=== PATIENT | female | born 1960 | race Hispanic/Latino ===

== ENCOUNTER 2018-01-19 14:27 | Emergency (ER) | payer SELFPAY ==
[2018-01-19 15:55] LABS: Absolute Monocytes 0.5 K/uL (0.1-1.3); Absolute Neutrophil 5.8 K/uL (1.8-8.0); Basophils % 0.2 % (0-1.3); Eosinophils % 2.2 % (0-4.4); Hematocrit 43.3 % (36.0-45.0); Lymphocytes % 31.4 % (15.3-44.8); MCH 29.6 pg (27.0-35.0); MCV 86.3 fL (80-100); MPV 9.8 fL (7.6-11.3); Monocytes % 5.2 % (3.3-12.3); Protime INR 1.04; RBC Red Blood Cell Count 5.02 M/uL (3.86-4.86)
--- NOTE | 2018-01-19 15:59 | RAD REPORT ---
EXAM DESCRIPTION: RAD - Chest Single View - 01/19/2018 3:44 pm CLINICAL HISTORY: Chest pain COMPARISON: October 2016 TECHNIQUE: AP portable chest image was obtained 1537 hours . FINDINGS: Lungs are clear. Heart and vasculature are normal. No measurable pleural effusion and no p neumothorax. No gross bony abnormality seen. No acute aortic findings suspected. IMPRESSION: No acute cardiopulmonary process. No significant change from comparison.
[2018-01-19 16:06] LABS: Bicarbonate 29 mEq/L (21-31); Glucose Level 108 mg/dL (65-120); Potassium 3.7 mEq/L (3.6-5.0); Sodium Level 138 mEq/L (135-145)
[2018-01-19 16:12] LABS: ALT/SGPT 13 IU/L (10-60); AST/SGOT 16 IU/L (10-42); Albumin 3.7 g/dL (3.2-5.5); Alkaline Phosphatase 61 IU/L (42-121); BUN Blood Urea Nitrogen 12 mg/dL (6-20); Bilirubin Direct 0.1 mg/dL (0-0.2); Bilirubin Total 0.4 mg/dL (0.3-1.2); Magnesium 1.5 mg/dL (1.8-2.5); Protein, Total 7.5 g/dL (6.0-8.3)
[2018-01-19 16:39] LABS: Urine Blood NEGATIVE (NEG); Urine Glucose NEGATIVE (NEG); Urine Protein NEGATIVE (NEG); Urine Specific Gravity <1.005 (1.005-1.030); Urine pH 5.5 (5.0-7.0)
[2018-01-19] MEDS ORDERED: MAGNESIUM SULFATE 1 gm IVPB 1 GM/100 ML BAG IV ONE (16:42)
--- NOTE | 2018-01-19 18:36 | ER ---
Nurse's Notes [facility] Name: Milana Gibson Age: 57 yrs Sex: Female : 1960 Arrival Date: 01/19/2018 Time: 14:30 Bed 30 Private MD: Diagnosis: Acute upper respiratory infection, unspecified;Viral illness Presentation: 01/19 14:41 Presenting complaint: Patient states: armando been having chest pain for 6 weeks but today hj the pain is worse and its a weird feeling that pain moves to the back and to my L arm; denies SOB;. Transition of care: patient was not received from another setting of care. Onset of symptoms was January 19, 2018. Care prior to arrival: None. 14:41 Method Of Arrival: Ambulatory 14:41 Acuity: LORNA 3 hj Triage Assessment: 14:43 General: Appears in no apparent distress. uncomfortable, Behavior is calm, cooperative, hj appropriate for age. Pain: Complains of pain in chest Pain radiates to back and left arm. Cardiovascular: Capillary refill < 3 seconds Patient's skin is warm and dry. 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 - Social history:: Smoking status: Patient/guardian denies using tobacco, never smoked. Screenin:06 Abuse screen: Denies threats or abuse. Nutritional screening: No deficits noted. rk2 Tuberculosis screening: No symptoms or risk factors identified. Fall Risk None identified. Assessment: 14:45 Pain: Pain began gradually. hj 15:09 General: Appears in no apparent distress. well groomed, well developed, well nourished, rk2 Behavior is calm, cooperative. Pain: Pain began Off and on over the past several weeks. Pain: Complains of pain in left arm and back and chest. Pain: Pain radiates to left arm and back. Neuro: Level of Consciousness is alert, obeys commands, Oriented to person, place, time, situation. Cardiovascular: Rhythm is sinus rhythm. Respiratory: Airway is patent Respiratory effort is even, unlabored, Respiratory pattern is regular, symmetrical. Derm: Skin is pink, warm \T\ dry. 16:15 Reassessment: Pt. resting in room \T\ this time... appears to be in no obvious distress. rk2 Nobody \T\ bedside. Pt. voiced no needs \T\ this time. 17:30 Reassessment: Pt. resting in room, in no obvious distress... pt. is pain free. No needs rk2 voiced \T\ this time. Vital Signs: 14:43 BP 132 / 90; Pulse 79; Resp 18; Temp 98.1(TE); Pulse Ox 99% on R/A; Weight 73.03 kg; hj Height 5 ft. 0 in. (152.40 cm); Pain 7/10; 15:30 BP 133 / 77; Pulse 77; Resp 17; Pulse Ox 99% on R/A; rk2 16:30 BP 135 / 67; Pulse 68; Resp 17; rk2 17:30 BP 124 / 65; Pulse 71; Resp 16; Pulse Ox 100% on R/A; rk2 18:30 BP 123 / 77; Pulse 66; Resp 17; Pulse Ox 99% on R/A; rk2 14:43 Body Mass Index 31.44 (73.03 kg, 152.40 cm) ED Course: 14:30 Patient arrived in ED. rg4 14:38 Loki Roberson MD is Attending Physician. kdr 14:42 Triage completed. hj 14:43 Arm band placed on left wrist. hj 14:45 Patient maintains SpO2 saturation greater than 95% on room air. hj 14:52 Neva Cooley, JASWINDER is Primary Nurse. rk2 15:06 Patient has correct armband on for positive identification. Placed in gown. Bed in low rk2 position. Call light in reach. tar roofer on. Pulse ox on. 15:41 XRAY Chest (1 view) In Process Unspecified. EDMS 15:41 XRAY Chest (1 view) Sent. rk2 16:03 X-ray completed. Portable x-ray completed in exam room. Patient tolerated procedure ap2 well. 18:47 No provider procedures requiring assistance completed. rk2 18:47 IV discontinued. rk2 Administered Medications: 16:46 Drug: Magnesium Sulfate 1 grams Route: IVPB; Infused Over: 1 hrs; Site: right rk antecubital; 17:46 Follow up: Response: No adverse reaction; IV Status: Completed infusion rk2 Outcome: 18:35 Discharge ordered by . kdr 19:08 Discharged to home ambulatory. rk2 19:08 Condition: good 19:08 Discharge instructions given to patient, Prescriptions given X 4. 19:09 Patient left the ED. rk2 Signatures: Dispatcher [employer] EDMS Loki Roberson MD MD kdr Joaquin, Henry, RN RN hj Garcia, Rubi rg4 Neva Cooley RN RN rk2 Sarita Martins ap2
--- NOTE | 2018-01-19 18:36 | EDPHYS ---
Physician Documentation [facility] Name: Milana Gibson Age: 57 yrs Sex: Female : 1960 Arrival Date: 01/19/2018 Time: 14:30 Bed 30 Private MD: ED Physician Loki Roberson HPI: 01/19 23:19 This 57 yrs old Female presents to ER via Ambulatory with complaints of Chest kdr Pain, Back Pain. 23:19 The patient or guardian reports cough, that is intermittent, described as moderate, kdr difficulty breathing, hoarse voice. Onset: The symptoms/episode began/occurred gradually, There patient has had upper respiratory s/s for a few week but today after spiritism, she became acutely worse with chest pressure and apparent laryngitis with coarse cough. Severity of symptoms: At their worst the symptoms were mild, moderate, in the emergency department the symptoms are unchanged. Modifying factors: The symptoms are alleviated by nothing, the symptoms are aggravated by exertion, talking. Associated signs and symptoms: Pertinent positives: chest pain, with cough, with movement, with breathing, sore throat. The patient has not experienced similar symptoms in the past. The patient has not recently seen a physician. 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 - Social history:: Smoking status: Patient/guardian denies using tobacco, never smoked. ROS: 23:19 Constitutional: Negative for fever, chills, and weight loss, Eyes: Negative for injury, kdr pain, redness, and discharge, Neck: Negative for injury, pain, and swelling, Abdomen/GI: Negative for abdominal pain, nausea, vomiting, diarrhea, and constipation, Back: Negative for injury and pain, : Negative for injury, bleeding, discharge, and swelling, MS/Extremity: Negative for injury and deformity, Skin: Negative for injury, rash, and discoloration, Neuro: Negative for headache, weakness, numbness, tingling, and seizure activity. Psych: Negative for depression, anxiety, suicide ideation, homicidal ideation, and hallucinations, Allergy/Immunology: Negative for hives, rash, and allergies, Endocrine: Negative for neck swelling, polydipsia, polyuria, polyphagia, and marked weight changes, Hematologic/Lymphatic: Negative for swollen nodes, abnormal bleeding, and unusual bruising. 23:19 ENT: Positive for hoarseness, sore throat. 23:19 Cardiovascular: Positive for chest pain, Negative for edema, orthopnea, palpitations, paroxysmal nocturnal dyspnea, acute changes. 23:19 Respiratory: Positive for cough, with no reported sputum, dyspnea on exertion, shortness of breath, on exertion. Exam: 23:19 Constitutional: This is a well developed, well nourished patient who is awake, alert, kdr and in no acute distress. Head/Face: Normocephalic, atraumatic. Eyes: Pupils equal round and reactive to light, extra-ocular motions intact. Lids and lashes normal. Conjunctiva and sclera are non-icteric and not injected. Cornea within normal limits. Periorbital areas with no swelling, redness, or edema. ENT: Nares patent. No nasal discharge, no septal abnormalities noted. Tympanic membranes are normal and external auditory canals are clear. Oropharynx with no redness, swelling, or masses, exudates, or evidence of obstruction, uvula midline. Mucous membranes moist. The patinet's voice is coars and raspy Neck: Trachea midline, no thyromegaly or masses palpated, and no cervical lymphadenopathy. Supple, full range of motion without nuchal rigidity, or vertebral point tenderness. No Meningismus. Chest/axilla: Normal chest wall appearance and motion. Nontender with no deformity. No lesions are appreciated. Cardiovascular: Regular rate and rhythm with a normal S1 and S2. No gallops, murmurs, or rubs. Normal PMI, no JVD. No pulse deficits. Respiratory: Lungs have equal breath sounds bilaterally, clear to auscultation and percussion. No rales, rhonchi or wheezes noted. No increased work of breathing, no retractions or nasal flaring. Abdomen/GI: Soft, non-tender, with normal bowel sounds. No distension or tympany. No guarding or rebound. No evidence of tenderness throughout. Back: No spinal tenderness. No costovertebral tenderness. Full range of motion. Skin: Warm, dry with normal turgor. Normal color with no rashes, no lesions, and no evidence of cellulitis. MS/ Extremity: Pulses equal, no cyanosis. Neurovascular intact. Full, normal range of motion. Neuro: Awake and alert, GCS 15, oriented to person, place, time, and situation. Cranial nerves II-XII grossly intact. Motor strength 5/5 in all extremities. Sensory grossly intact. Cerebellar exam normal. Normal gait. Psych: Awake, alert, with orientation to person, place and time. Behavior, mood, and affect are within normal limits. Vital Signs: 14:43 BP 132 / 90; Pulse 79; Resp 18; Temp 98.1(TE); Pulse Ox 99% on R/A; Weight 73.03 kg; hj Height 5 ft. 0 in. (152.40 cm); Pain 7/10; 15:30 BP 133 / 77; Pulse 77; Resp 17; Pulse Ox 99% on R/A; rk2 16:30 BP 135 / 67; Pulse 68; Resp 17; rk2 17:30 BP 124 / 65; Pulse 71; Resp 16; Pulse Ox 100% on R/A; rk2 18:30 BP 123 / 77; Pulse 66; Resp 17; Pulse Ox 99% on R/A; rk2 14:43 Body Mass Index 31.44 (73.03 kg, 152.40 cm) hj MDM: 18:35 Patient medically screened. kdr 23:19 Data reviewed: vital signs, nurses notes, lab test result(s), EKG, radiologic studies. kdr Counseling: I had a detailed discussion with the patient and/or guardian regarding: the historical points, exam findings, and any diagnostic results supporting the discharge/admit diagnosis, lab results, radiology results, the need for outpatient follow up. 01/19 15:19 Order name: Basic Metabolic Panel; Complete Time: 16:40 kdr 01/19 15:19 Order name: CBC with Diff; Complete Time: 16:11 kdr 01/19 15:19 Order name: LFT's; Complete Time: 16:40 kdr 01/19 15:19 Order name: Magnesium; Complete Time: 16:40 kdr 01/19 15:19 Order name: PT-INR; Complete Time: 16:11 kdr 01/19 15:19 Order name: Ptt, Activated; Complete Time: 16:11 kdr 01/19 15:19 Order name: Troponin (emerg Dept Use Only); Complete Time: 16:40 kdr 01/19 15:19 Order name: XRAY Chest (1 view); Complete Time: 16:11 kdr 01/19 15:19 Order name: EKG; Complete Time: 15:19 kdr 01/19 15:19 Order name: Cardiac monitoring; Complete Time: 15:22 kdr 01/19 15:19 Order name: EKG - Nurse/Tech; Complete Time: 15:22 kdr 01/19 15:19 Order name: IV Saline Lock; Complete Time: 15:22 kdr 01/19 16:20 Order name: Urine Dipstick--Ancillary (enter results); Complete Time: 16:40 ag 01/19 15:19 Order name: Labs collected and sent; Complete Time: 15:22 kdr 01/19 15:19 Order name: O2 Per Protocol; Complete Time: 15:23 kdr 01/19 15:19 Order name: O2 Sat Monitoring; Complete Time: 15:23 kdr 01/19 15:19 Order name: Urine Dipstick-Ancillary (obtain specimen); Complete Time: 16:15 kdr Administered Medications: 16:46 Drug: Magnesium Sulfate 1 grams Route: IVPB; Infused Over: 1 hrs; Site: right rk2 antecubital; 17:46 Follow up: Response: No adverse reaction; IV Status: Completed infusion rk2 Disposition: 01/19/18 18:35 Discharged to Home. Impression: Acute upper respiratory infection, unspecified, Viral illness. - Condition is Stable. - Discharge Instructions: Upper Respiratory Infection, Adult, Viral Infections, [id number]. - Prescriptions for Prednisone 20 mg Oral Tablet - take 1 tablet by ORAL route once daily for 5 days; 5 tablet. Tessalon Perles 100 mg Oral Capsule - take 1 capsule by ORAL route every 8 hours As needed; 15 capsule. Zithromax Z- Bello 250 mg Oral Tablet - take 1 tablet by ORAL route as directed for 5 days Day 1 - take two (2) tablets one time. Day 2, 3, 4 , 5 take one (1) tablet once daily.; 6 tablet. Albuterol Sulfate 90 mcg/actuation - inhale 1-2 puff by INHALATION route every 4-6 hours; 1 Inhaler. - Medication Reconciliation Form, Thank You Letter, Antibiotic Education, Prescription Opioid Use form. - Follow up: Private Physician; When: 2 - 3 days; Reason: If symptoms return, Further diagnostic work-up, Recheck today's complaints, Continuance of care, Re-evaluation by your physician. - Problem is new. - Symptoms have improved. Signatures: Dispatcher [employer] Loki Melendez MD MD [facility] Ozzie Monroy RN RN hj Neva Cooley RN RN rk2
--- NOTE | 2018-01-20 07:38 | EKG ---
Test Date: 2018-01-19 Test Time: 14:49:05 [employer]: ADWOA MEASUREMENT RESULTS: Intervals: Rate: 77 MS: 148 QRSD: 72 QT: 380 QTc: 430 Chauvin: P: 24 MS: 148 QRS: -12 T: 17 INTERPRETIVE STATEMENTS: Normal sinus rhythm Cannot rule out Anterior infarct, age undetermined Abnormal ECG Electronically Signed On 01-20-18 07:37:25 CDT by Greg Rodriguez
== END 2018-01-19 19:09 | disposition home or self-care (01) ==
LOC: ER 14:27
DX: J06.9 Acute upper respiratory infection, unspecified (principal); E11.9 Type 2 diabetes mellitus without complications; Z79.82 Long term (current) use of aspirin; Z88.0 Allergy status to penicillin
CPT/HCPCS: 36415; 71045; 80048; 80076; 81003; 83735; 84484; 85025; 85610; 85730; 93005; 96365; 99285; J3475

== ENCOUNTER 2019-01-27 18:03 | Emergency (ER) | payer SELFPAY ==
--- NOTE | 2019-01-27 18:46 | ER ---
Nurse's Notes [facility] Name: Milana Gibson Age: 58 yrs Sex: Female : 1960 Arrival Date: 01/27/2019 Time: 18:04 Bed 19 Private MD: Diagnosis: Tran's palsy Presentation: 01/27 18:06 Presenting complaint: Patient states: "I noticed I had left sided facial droop on sv Saturday and I went to see my doctor today and he told me to come to the ER." Denies slurred speech, weakness, balance issues. Reports recent hyperglycemia issues and Tran's palsy. Pt unable to close her left eye. Transition of care: patient was not received from another setting of care. No acute neurological deficit is noted. Pre-hospital glucose is not applicable to this patient. Onset of symptoms was January 25, 2019. Care prior to arrival: None. 18:06 Method Of Arrival: Ambulatory sv 18:06 Acuity: LORNA 3 sv 19:07 Risk Assessment: Do you want to hurt yourself or someone else? Patient reports no bp desire to harm self or others. Initial Sepsis Screen: Does the patient meet any 2 criteria? No. Patient's initial sepsis screen is negative. Does the patient have a suspected source of infection? No. Patient's initial sepsis screen is negative. Triage Assessment: 18:09 The onset of the patients symptoms was January 25, 2019 at 08:00. General: Appears in no bp apparent distress. comfortable, obese, Behavior is calm, cooperative, appropriate for age. Pain: Denies pain. EENT: No deficits noted. Neuro: Reports paresthesias in LEFT FACE. Cardiovascular: No deficits noted. Respiratory: Airway is patent Respiratory effort is even, unlabored, Respiratory pattern is regular, symmetrical. GI: No signs and/or symptoms were reported involving the gastrointestinal system. : No signs and/or symptoms were reported regarding the genitourinary system. Derm: No deficits noted. Musculoskeletal: Circulation, motion, and sensation intact. Range of motion: intact in all extremities. Stroke Activation: Symptom onset > 6 hours Physician: Stroke Attending; Name: ; Notified At: ; Arrived At: Physician: Chief Stroke Resident; Name: ; Notified At: ; Arrived At: Physician: Stroke Resident; Name: ; Notified At: ; Arrived At: Physician: ED Attending; Name: ; Notified At: ; Arrived At: Physician: ED Resident; Name: ; Notified At: ; Arrived At: Historical: - Allergies: 18:07 PENICILLINS; sv 18:07 tramadol; sv - Home Meds: 19:08 aspirin 81 mg Oral TbEC 1 tab once daily [Active]; lisinopril Oral [Active]; metformin bp 1,000 mg Oral tab 1 tab 2 times per day [Active]; - PMHx: 18:07 Diabetes - IDDM; sv - PSHx: 18:07 Cholecystectomy; ; Tubal ligation; Tonsillectomy; sv - Immunization history:: Adult Immunizations up to date. - Social history:: Smoking status: unknown. - Family history:: not pertinent. - Ebola Screening: : Patient negative for fever greater than or equal to 101.5 degrees Fahrenheit, and additional compatible Ebola Virus Disease symptoms Patient denies exposure to infectious person Patient denies travel to an Ebola-affected area in the 21 days before illness onset No symptoms or risks identified at this time. - Hospitalizations: : No recent hospitalization is reported. Screenin:11 Abuse screen: Denies threats or abuse. Denies injuries from another. Nutritional bp screening: No deficits noted. Tuberculosis screening: No symptoms or risk factors identified. Fall Risk None identified. Assessment: 18:11 VAN Scoring: Arm Drift: Patients demonstrates NO arm weakness. Patient is VAN Negative. bp The patient has not been NPO before screening. The patient is alert, and able to follow commands. The patient does not exhibit slurred or garbled speech. The patient is not exhibiting difficulty speaking. The patient does not exhibit difficulty understanding words. The patient is able to swallow own secretions with no drooling or need for suction. Patient tolerated one teaspoon of water. No drooling, immediate coughing, gurgling, or clearing of the throat was noted. The patient tolerated 90mL of water. No drooling, immediate coughing, gurgling, or clearing of the throat was noted. The patient passed the bedside swallow screening. Oral medications may be given as ordered. Contact Physician for further diet orders. Provider notified of bedside swallow screening results: Juan Diego Mcdaniels MD. T-PA (Activase) Screening: Contraindications: Patient reports onset of signs and symptoms of stroke greater than 6 hours ago: Yes. General: SEE TRIAGE NOTE. 19:06 Reassessment: PT D/C HOME AMBULATORY, DX WITH TRAN'S PALSY. bp Vital Signs: 18:08 BP 129 / 85; Pulse 79; Resp 18; Temp 98.1; Pulse Ox 100% ; Weight 86.18 kg; Height 5 sv ft. 0 in. (152.40 cm); Pain 0/10; 18:08 Body Mass Index 37.11 (86.18 kg, 152.40 cm) sv NIH Stroke Scale Scores: 18:11 NIHSS Score: 3 bp ED Course: 18:04 Patient arrived in ED. as 18:07 Triage completed. sv 18:08 Arm band placed on. sv 18:09 Aldo Fried, JASWINDER is Primary Nurse. bp 18:10 Juan Diego Mcdaniels MD is Attending Physician. wa 18:11 Patient has correct armband on for positive identification. Bed in low position. Call bp light in reach. Side rails up X2. 18:45 Daniel Arnold MD is Referral Physician. wa 19:06 No provider procedures requiring assistance completed. Patient did not have IV access bp during this emergency room visit. Administered Medications: No medications were administered Outcome: 18:45 Discharge ordered by . wa 19:06 Discharged to home ambulatory. bp 19:06 Condition: stable 19:06 Discharge instructions given to patient, Instructed on discharge instructions, follow up and referral plans. medication usage, Demonstrated understanding of instructions, follow-up care, medications, Prescriptions given X 2. 19:08 Patient left the ED. bp NIH Stroke Scale - NIH Stroke Score Date: 01/27/2019 Time: 18:11 Total Score = 3 1a. Level of Consciousness (LOC) - 0(Alert) 1b. Level of Consciousness (LOC) (Year \\T\\ Age) - 0(Both) 1c. LOC Commands (Open \\T\\ Closes Eyes/Paradi Tender) - 0(Both) 2. Best Gaze (Lateral Gaze Paresis) - 0(Normal) 3. Visual Field Loss - 0(No visual loss) 4. Facial Palsy - 2(Partial paralysis) 5a. Left Arm: Motor (10-second hold) - 0(No drift) 5b. Right Arm: Motor (10-second hold) - 0(No drift) 6a. Left Leg: Motor (5-second hold - always test supine) - 0(No drift) 6b. Right Leg: Motor (5-second hold - always test supine) - 0(No drift) 7. Limb Ataxia (finger/nose \\T\\ heel/grady - test with eyes open) - 0(Absent) 8. Sensory Loss (pinprick arms/legs/face) - 1(Mild to moderate loss) 9. Best Language: Aphasia (description/naming/reading) - 0(No aphasia) 10. Dysarthria (speech clarity - read or repeat words) - 0(Normal) 11. Extinction and Inattention (visual/tactile/auditory/spatial/personal) - 0(No abnormality) Initials: bp Signatures: Shabnam Vasquez RN RN Alycia Krishnamurthy William, MD MD pa Aldo Fried RN RN bp Corrections: (The following items were deleted from the chart) 18:08 18:06 Presenting complaint: Patient states: "I noticed I had facial droop on Saturday and I went to see my doctor today and he told me to come to the ER." Denies slurred speech, weakness, balance issues. 18:11 18:06 Presenting complaint: Patient states: "I noticed I had facial droop on Saturday and I went to see my doctor today and he told me to come to the ER." Denies slurred speech, weakness, balance issues. Reports recent hyperglycemia issues and Tran's palsy
--- NOTE | 2019-01-27 18:46 | EDPHYS ---
Physician Documentation [facility] Name: Milana Gibson Age: 58 yrs Sex: Female : 1960 Arrival Date: 01/27/2019 Time: 18:04 Bed 19 Private MD: ED Physician Juan Diego Mcdaniels HPI: 01/27 18:39 This 58 yrs old Female presents to ER via Ambulatory with complaints of Facial wa Droop. 18:39 The patient presents to the emergency department with weakness of the left side of the wa face, that is moderate. Onset: The symptoms/episode began/occurred 3 day(s) ago. Context: occurred at home, occurred while the patient was at rest. Associated signs and symptoms: Pertinent negatives: altered mental status, dizziness, headache, neck stiffness, paresthesias, seizure, blurred vision, double vision, visual field changes, loss of vision. Severity of symptoms: At their worst the symptoms were moderate in the emergency department the symptoms are unchanged. Patient's baseline: Neuro: alert and fully oriented, Motor: no deficits, Ambulation: walks without assistance, Speech: normal, The patient has a previous history of Tran's palsy. Current symptoms: paralysis or paresis, that is moderate. The patient has not experienced similar symptoms in the past. The patient has not recently seen a physician. denies dizziness, GEE, difficulty with speech or ambulation. Historical: - Allergies: 18:07 PENICILLINS; sv 18:07 tramadol; sv - Home Meds: 19:08 aspirin 81 mg Oral TbEC 1 tab once daily [Active]; lisinopril Oral [Active]; metformin bp 1,000 mg Oral tab 1 tab 2 times per day [Active]; - PMHx: 18:07 Diabetes - IDDM; sv - PSHx: 18:07 Cholecystectomy; ; Tubal ligation; Tonsillectomy; sv - Immunization history:: Adult Immunizations up to date. - Social history:: Smoking status: unknown. - Family history:: not pertinent. - Ebola Screening: : Patient negative for fever greater than or equal to 101.5 degrees Fahrenheit, and additional compatible Ebola Virus Disease symptoms Patient denies exposure to infectious person Patient denies travel to an Ebola-affected area in the 21 days before illness onset No symptoms or risks identified at this time. - Hospitalizations: : No recent hospitalization is reported. ROS: 18:42 Constitutional: Negative for fever, chills, and weight loss, Eyes: Negative for injury, wa pain, redness, and discharge, ENT: Negative for injury, pain, and discharge, Neck: Negative for injury, pain, and swelling, Cardiovascular: Negative for chest pain, palpitations, and edema, Respiratory: Negative for shortness of breath, cough, wheezing, and pleuritic chest pain, Abdomen/GI: Negative for abdominal pain, nausea, vomiting, diarrhea, and constipation, Back: Negative for injury and pain, : Negative for injury, bleeding, discharge, and swelling, MS/Extremity: Negative for injury and deformity, Skin: Negative for injury, rash, and discoloration, Psych: Negative for depression, anxiety, suicide ideation, homicidal ideation, and hallucinations. 18:42 Neuro: Positive for weakness, of the left face. 18:42 All other systems are negative. Exam: 18:42 Constitutional: This is a well developed, well nourished patient who is awake, alert, wa and in no acute distress. Head/Face: Normocephalic, atraumatic. Eyes: Pupils equal round and reactive to light, extra-ocular motions intact. Lids and lashes normal. Conjunctiva and sclera are non-icteric and not injected. Cornea within normal limits. Periorbital areas with no swelling, redness, or edema. ENT: Nares patent. No nasal discharge, no septal abnormalities noted. Tympanic membranes are normal and external auditory canals are clear. Oropharynx with no redness, swelling, or masses, exudates, or evidence of obstruction, uvula midline. Mucous membranes moist. Neck: Trachea midline, no thyromegaly or masses palpated, and no cervical lymphadenopathy. Supple, full range of motion without nuchal rigidity, or vertebral point tenderness. No Meningismus. Chest/axilla: Normal chest wall appearance and motion. Nontender with no deformity. No lesions are appreciated. Cardiovascular: Regular rate and rhythm with a normal S1 and S2. No gallops, murmurs, or rubs. Normal PMI, no JVD. No pulse deficits. Respiratory: Lungs have equal breath sounds bilaterally, clear to auscultation and percussion. No rales, rhonchi or wheezes noted. No increased work of breathing, no retractions or nasal flaring. Abdomen/GI: Soft, non-tender, with normal bowel sounds. No distension or tympany. No guarding or rebound. No evidence of tenderness throughout. Back: No spinal tenderness. No costovertebral tenderness. Full range of motion. Skin: Warm, dry with normal turgor. Normal color with no rashes, no lesions, and no evidence of cellulitis. MS/ Extremity: Pulses equal, no cyanosis. Neurovascular intact. Full, normal range of motion. Psych: Awake, alert, with orientation to person, place and time. Behavior, mood, and affect are within normal limits. 18:42 Neuro: Orientation: is normal, Mentation: is normal, Cranial nerves: grossly normal, Cerebellar function: is grossly normal, Motor: L facial paralysis noted. involves forehead musculature as well, Sensation: is normal. Vital Signs: 18:08 BP 129 / 85; Pulse 79; Resp 18; Temp 98.1; Pulse Ox 100% ; Weight 86.18 kg; Height 5 sv ft. 0 in. (152.40 cm); Pain 0/10; 18:08 Body Mass Index 37.11 (86.18 kg, 152.40 cm) sv NIH Stroke Scale Scores: 18:11 NIHSS Score: 3 bp MDM: 18:10 Patient medically screened. 18:44 Data reviewed: vital signs, nurses notes. 18:44 ED course: symptoms consistent with Tran's palsy. meds. close f/u. advised artificial wa tears. Administered Medications: No medications were administered Disposition: 01/27/19 18:45 Discharged to Home. Impression: Tran's palsy. - Condition is Stable. - Discharge Instructions: Tran Palsy, Adult. - Prescriptions for Prednisone 20 mg Oral Tablet - take 2 tablet by ORAL route once daily for 5 days; 10 tablet. Acyclovir 800 mg Oral Tablet - take 1 tablet by ORAL route 5 times per day for 10 days; 50 tablet. - Medication Reconciliation Form, Thank You Letter, Antibiotic Education, Prescription Opioid Use form. - Follow up: Daniel Arnold MD; When: 2 - 3 days; Reason: Recheck today's complaints. - Problem is new. - Symptoms are unchanged. - Notes: make sure you check your blood sugar and stay on our insulin as prednisone could cause blood glucose to go high. buy artificial tears for your left eye to prevent drying and dessication. you may take the L eye shut with bandaid at night to prevent dryness NIH Stroke Scale - NIH Stroke Score Date: 01/27/2019 Time: 18:11 Total Score = 3 1a. Level of Consciousness (LOC) - 0(Alert) 1b. Level of Consciousness (LOC) (Year \T\ Age) - 0(Both) 1c. LOC Commands (Open \T\ Closes Eyes/Technology Assistant) - 0(Both) 2. Best Gaze (Lateral Gaze Paresis) - 0(Normal) 3. Visual Field Loss - 0(No visual loss) 4. Facial Palsy - 2(Partial paralysis) 5a. Left Arm: Motor (10-second hold) - 0(No drift) 5b. Right Arm: Motor (10-second hold) - 0(No drift) 6a. Left Leg: Motor (5-second hold - always test supine) - 0(No drift) 6b. Right Leg: Motor (5-second hold - always test supine) - 0(No drift) 7. Limb Ataxia (finger/nose \T\ heel/grady - test with eyes open) - 0(Absent) 8. Sensory Loss (pinprick arms/legs/face) - 1(Mild to moderate loss) 9. Best Language: Aphasia (description/naming/reading) - 0(No aphasia) 10. Dysarthria (speech clarity - read or repeat words) - 0(Normal) 11. Extinction and Inattention (visual/tactile/auditory/spatial/personal) - 0(No abnormality) Initials: bp Signatures: Shabnam Vasquez RN RN sv Appiah, William, MD MD wa Peltier, Brian, RN RN bp Corrections: (The following items were deleted from the chart) 19:08 18:45 01/27/2019 18:45 Discharged to Home. Impression: Tran's palsy. Condition bp is Stable. Forms are Medication Reconciliation Form, Thank You Letter, Antibiotic Education, Prescription Opioid Use. Follow up: Daniel Arnold; When: 2 - 3 days; Reason: Recheck today's complaints. Problem is new. Symptoms are unchanged. librado
== END 2019-01-27 19:08 | disposition home or self-care (01) ==
LOC: ER 18:03
DX: G51.0 Bell's palsy (principal); E11.9 Type 2 diabetes mellitus without complications; Z79.82 Long term (current) use of aspirin; Z79.4 Long term (current) use of insulin; Z88.5 Allergy status to narcotic agent; Z88.0 Allergy status to penicillin
CPT/HCPCS: 99282

== ENCOUNTER 2020-11-05 22:23 | Inpatient (IN) | payer BC, SELFPAY ==
--- NOTE | 2020-11-06 02:57 | ER ---
Nurse's Notes [facility] Name: Milana Gibson Age: 60 yrs Sex: Female : 1960 Arrival Date: 11/05/2020 Time: 22:23 Bed 6 Private MD: Diagnosis: Chest pain, unspecified;Type 2 diabetes mellitus;Hypomagnesemia Presentation: 11/05 23:11 Chief complaint: Patient states: Chest pain that began at 2200 tonight before going to lp1 bed; reports feeling tightness in chest radiating to left arm and jaw;. Ebola Screen: No symptoms or risks identified at this time. Risk Assessment: Do you want to hurt yourself or someone else? Patient reports no desire to harm self or others. Onset of symptoms was November 05, 2020 at 22:00. 23:11 Method Of Arrival: Ambulatory lp1 23:11 Acuity: LORNA 3 lp1 23:15 Coronavirus screen: Client denies travel out of the [place] in the last 14 days. At this lp1 time, the client does not indicate any symptoms associated with coronavirus-19. Initial Sepsis Screen: Does the patient meet any 2 criteria? No. Patient's initial sepsis screen is negative. Does the patient have a suspected source of infection? No. Patient's initial sepsis screen is negative. Triage Assessment: 23:22 General: Appears in no apparent distress. Behavior is appropriate for age. Pain: lp1 Complains of pain in chest Pain radiates to left arm. Cardiovascular: Patient's skin is warm and dry. Respiratory: Respiratory effort is even, unlabored. Derm: Skin is pink, warm \T\ dry. Historical: - Allergies: 23:15 PENICILLINS; lp1 23:15 tramadol; lp1 23:15 Clindamycin; lp1 - Home Meds: 23:15 aspirin 81 mg Oral TbEC 1 tab once daily [Active]; metformin 1,000 mg Oral tab 1 tab 2 lp1 times per day [Active]; paroxetine HCl 10 mg oral tab 1 tab once daily [Active]; fluconazole 200 mg Oral tab 1 tab once daily [Active]; - PMHx: 23:15 Diabetes - IDDM; Depression; Diabetes - NIDDM; lp1 - PSHx: 23:15 Tonsillectomy; Cholecystectomy; ; Tubal ligation; lp1 - Immunization history:: Adult Immunizations up to date. - Social history:: Smoking status: Patient denies any tobacco usage or history of. - Family history:: not pertinent. Screenin/31 03:00 Abuse screen: Denies threats or abuse. Nutritional screening: No deficits noted. ll2 Tuberculosis screening: No symptoms or risk factors identified. Fall Risk None identified. Assessment: 03:00 General: Appears in no apparent distress. Behavior is calm, cooperative, appropriate ll2 for age. Pain: Complains of pain in left arm and chest Pain began gradually. Neuro: Level of Consciousness is awake, alert, obeys commands, Oriented to person, place, time, situation. Cardiovascular: Patient's skin is warm and dry. Respiratory: Airway is patent Respiratory effort is even, unlabored. GI: No signs and/or symptoms were reported involving the gastrointestinal system. : No signs and/or symptoms were reported regarding the genitourinary system. EENT: No signs and/or symptoms were reported regarding the EENT system. Derm: Skin is pink, warm \T\ dry. 04:00 Reassessment: Patient and/or family updated on plan of care and expected duration. Pain ll2 level reassessed. Patient is alert, oriented x 3, equal unlabored respirations, skin warm/dry/pink. 05:00 Reassessment: Patient and/or family updated on plan of care and expected duration. Pain ll2 level reassessed. Patient is alert, oriented x 3, equal unlabored respirations, skin warm/dry/pink. Pain: Denies pain. Vital Signs: 11/05 23:15 BP 146 / 82; Pulse 82; Resp 18; Temp 97.9(O); Pulse Ox 99% on R/A; Weight 78.93 kg (R); lp1 Height 5 ft. 0 in. (152.40 cm); Pain 7/10; 11/06 02:11 BP 126 / 76; Pulse 72; Resp 16; Pulse Ox 98% on R/A; ll2 03:15 BP 130 / 75; Pulse 75; Resp 20; Pulse Ox 97% on R/A; ll2 04:15 BP 120 / 55; Pulse 72; Resp 18; Pulse Ox 97% on R/A; ll2 05:15 BP 110 / 60; Pulse 62; Resp 16; Pulse Ox 96% on R/A; ll2 06:16 BP 128 / 68; Pulse 67; Resp 18; Pulse Ox 98% on R/A; ll2 11/05 23:15 Body Mass Index 33.98 (78.93 kg, 152.40 cm) lp1 ED Course: 11/05 22:23 Patient arrived in ED. cl3 23:12 Triage completed. lp1 23:13 Arm band placed on right wrist. lp1 23:22 EKG done, by ED staff, reviewed by Иван Jacobs MD. lp1 23:23 Patient maintains SpO2 saturation greater than 95% on room air. lp1 11/06 01:21 Chest Single View XRAY In Process Unspecified. EDMS 01:59 Иван Jacobs MD is Attending Physician. you 02:50 Joann Schofield, JASWINDER is Primary Nurse. ll2 02:53 Derek Benites MD is Hospitalizing Provider. you 03:00 Patient has correct armband on for positive identification. Placed in gown. Bed in low ll2 position. Call light in reach. Side rails up X 1. teacher of the visually impaired on. Pulse ox on. NIBP on. 03:00 Inserted saline lock: 20 gauge in left wrist, using aseptic technique. Blood collected. oe 04:50 No provider procedures requiring assistance completed. ll2 04:55 Patient admitted, IV remains in place. ll2 07:20 Primary Nurse role handed off by Joann Schofield, JASWINDER sv 07:20 Shabnam Vasquez, JASWINDER is Primary Nurse. sv Administered Medications: 03:29 Drug: Lovenox 1 mg/kg Route: Sub-Q; Site: abdomen; ll2 04:30 Follow up: Response: No adverse reaction ll2 03:29 Drug: Lopressor 25 mg Route: PO; ll2 04:30 Follow up: Response: No adverse reaction ll2 03:30 Drug: NS 0.9% 1000 ml Route: IV; Rate: 125 ml/hr; Site: left forearm; ll2 03:31 Drug: Aspirin 162 mg Route: PO; ll2 04:30 Follow up: Response: No adverse reaction ll2 05:30 Drug: Magnesium Sulfate 1 grams Route: IVPB; Infused Over: 1 hrs; Site: right forearm; ll2 Outcome: 02:56 Decision to Hospitalize by Provider. you 04:50 Condition: stable ll2 04:50 Instructed on the need for admit. 09:27 Admitted to Tele accompanied by tech, via stretcher, room 216, with chart, Report hb called to Paula SAN 09:55 Patient left the ED. hb Signatures: Dispatcher [employer] Shabnam Joseph, RN RN Иван Shah MD MD cha Pena, Laura, RN RN lp1 Wendi Anderson RN RN Chao Guillaume Charde cl3 Joann Schofield RN RN ll2
--- NOTE | 2020-11-06 02:57 | EDPHYS ---
Physician Documentation [facility] Name: Milana Gibson Age: 60 yrs Sex: Female : 1960 Arrival Date: 11/05/2020 Time: 22:23 Bed 6 Private MD: ED Physician Иван Jacobs HPI: 11/06 02:48 This 60 yrs old Female presents to ER via Ambulatory with complaints of Chest you Pain. 02:48 The patient or guardian reports chest pain that is located primarily in the substernal you area, anterior chest wall, left. Onset: last night. The pain radiates to the left arm, Associated signs and symptoms: The patient has no apparent associated signs or symptoms. The chest pain is described as a pressure. Duration: The patient or guardian reports multiple episodes, with no pattern. Severity of pain: At its worst the pain was moderate in the emergency department the pain has resolved. The patient has not experienced similar symptoms in the past. Historical: - Allergies: 11/05 23:15 PENICILLINS; lp1 23:15 tramadol; lp1 23:15 Clindamycin; lp1 - Home Meds: 23:15 aspirin 81 mg Oral TbEC 1 tab once daily [Active]; metformin 1,000 mg Oral tab 1 tab 2 lp1 times per day [Active]; paroxetine HCl 10 mg oral tab 1 tab once daily [Active]; fluconazole 200 mg Oral tab 1 tab once daily [Active]; - PMHx: 23:15 Diabetes - IDDM; Depression; Diabetes - NIDDM; lp1 - PSHx: 23:15 Tonsillectomy; Cholecystectomy; ; Tubal ligation; lp1 - Immunization history:: Adult Immunizations up to date. - Social history:: Smoking status: Patient denies any tobacco usage or history of. - Family history:: not pertinent. ROS: 11/06 02:48 Constitutional: Negative for fever, chills, and weight loss, Eyes: Negative for injury, you pain, redness, and discharge, ENT: Negative for injury, pain, and discharge, Neck: Negative for injury, pain, and swelling, Respiratory: Negative for shortness of breath, cough, wheezing, and pleuritic chest pain, Abdomen/GI: Negative for abdominal pain, nausea, vomiting, diarrhea, and constipation, Back: Negative for injury and pain, : Negative for injury, bleeding, discharge, and swelling, MS/Extremity: Negative for injury and deformity, Skin: Negative for injury, rash, and discoloration, Neuro: Negative for headache, weakness, numbness, tingling, and seizure, Psych: Negative for depression, anxiety, suicide ideation, homicidal ideation, and hallucinations, Allergy/Immunology: Negative for hives, rash, and allergies, Endocrine: Negative for neck swelling, polydipsia, polyuria, polyphagia, and marked weight changes, Hematologic/Lymphatic: Negative for swollen nodes, abnormal bleeding, and unusual bruising. Cardiovascular: Positive for chest pain, of the chest and left arm. Exam: 02:48 Constitutional: This is a well developed, well nourished patient who is awake, alert, you and in no acute distress. Head/Face: Normocephalic, atraumatic. Eyes: Pupils equal round and reactive to light, extra-ocular motions intact. Lids and lashes normal. Conjunctiva and sclera are non-icteric and not injected. Cornea within normal limits. Periorbital areas with no swelling, redness, or edema. ENT: Nares patent. No nasal discharge, no septal abnormalities noted. Tympanic membranes are normal and external auditory canals are clear. Oropharynx with no redness, swelling, or masses, exudates, or evidence of obstruction, uvula midline. Mucous membranes moist. Neck: Trachea midline, no thyromegaly or masses palpated, and no cervical lymphadenopathy. Supple, full range of motion without nuchal rigidity, or vertebral point tenderness. No Meningismus. Chest/axilla: Normal chest wall appearance and motion. Nontender with no deformity. No lesions are appreciated. Cardiovascular: Regular rate and rhythm with a normal S1 and S2. No gallops, murmurs, or rubs. Normal PMI, no JVD. No pulse deficits. Respiratory: Lungs have equal breath sounds bilaterally, clear to auscultation and percussion. No rales, rhonchi or wheezes noted. No increased work of breathing, no retractions or nasal flaring. Abdomen/GI: Soft, non-tender, with normal bowel sounds. No distension or tympany. No guarding or rebound. No evidence of tenderness throughout. Back: No spinal tenderness. No costovertebral tenderness. Full range of motion. Skin: Warm, dry with normal turgor. Normal color with no rashes, no lesions, and no evidence of cellulitis. MS/ Extremity: Pulses equal, no cyanosis. Neurovascular intact. Full, normal range of motion. Neuro: Awake and alert, GCS 15, oriented to person, place, time, and situation. Cranial nerves II-XII grossly intact. Motor strength 5/5 in all extremities. Sensory grossly intact. Cerebellar exam normal. Normal gait. Psych: Awake, alert, with orientation to person, place and time. Behavior, mood, and affect are within normal limits. 02:48 Musculoskeletal/extremity: DVT Exam: No signs of deep vein thrombosis. no pain, no swelling, no tenderness, negative Homans' sign noted on exam, no appreciated bluish discoloration, no erythema, no increased warmth. 02:52 ECG was reviewed by the Attending Physician. [facility] Vital Signs: 11/05 23:15 BP 146 / 82; Pulse 82; Resp 18; Temp 97.9(O); Pulse Ox 99% on R/A; Weight 78.93 kg (R); lp1 Height 5 ft. 0 in. (152.40 cm); Pain 7/10; 11/06 02:11 BP 126 / 76; Pulse 72; Resp 16; Pulse Ox 98% on R/A; ll2 03:15 BP 130 / 75; Pulse 75; Resp 20; Pulse Ox 97% on R/A; ll2 04:15 BP 120 / 55; Pulse 72; Resp 18; Pulse Ox 97% on R/A; ll2 05:15 BP 110 / 60; Pulse 62; Resp 16; Pulse Ox 96% on R/A; ll2 06:16 BP 128 / 68; Pulse 67; Resp 18; Pulse Ox 98% on R/A; ll2 11/05 23:15 Body Mass Index 33.98 (78.93 kg, 152.40 cm) lp1 MDM: 01:[address] [facility] 02:50 Differential diagnosis: abnormal EKG, acute myocardial infarction, chest wall pain, you Cholelithiasis esophagitis, pancreatitis, stable angina, unstable angina. HEART Score: History: Moderately Suspicious (1), ECG: Normal (0), Age: > 45 and < 65 years (1), Risk Factors: > or = 3 Risk factors for atherosclerotic disease (2), [Hypertension] [DM] [+ Family HX] [Obesity] Troponin: < or = 1 x Normal Limit (0). The patient was given aspirin in the Emergency Department. The patient's deep vein thrombosis risk score was calculated as follows: Total Score: 0. This patient was found to be at low risk for a deep vein thrombosis by using the Well's assessment criteria. The patient's pulmonary embolism risk score was calculated as follows: Total Score: 0-2 points. This patient was found to be at low risk for a pulmonary embolism by using the Well's assessment criteria. TEMI Risk Score: TOTAL SCORE = 0. Data reviewed: vital signs, nurses notes, lab test result(s), EKG, radiologic studies, plain films. Data interpreted: environmental monitoring specialist: rate is 82 beats/min, rhythm is regular. Test interpretation: by ED physician or midlevel provider: ECG, plain radiologic studies. Counseling: I had a detailed discussion with the patient and/or guardian regarding: the historical points, exam findings, and any diagnostic results supporting the discharge/admit diagnosis, the presence of at least one elevated blood pressure reading (>120/80) during this emergency department visit, lab results, the need for further work-up and treatment in the hospital. 11/06 02:06 Order name: Basic Metabolic Panel; Complete Time: 04: [facility] 11/06 02:06 Order name: CBC with Diff; Complete Time: 04: [facility] 11/06 02:06 Order name: LFT's; Complete Time: 04: [facility] 11/06 02:06 Order name: Magnesium; Complete Time: 04: [facility] 11/06 02:06 Order name: NT PRO-BNP; Complete Time: 04:21 [facility] 11/06 02:06 Order name: PT-INR; Complete Time: 04: [facility] 11/06 02:06 Order name: Troponin (emerg Dept Use Only); Complete Time: 04: [facility] 11/06 02:06 Order name: Lipase; Complete Time: 04: [facility] 11/06 03:08 Order name: NT PRO-BNP; Complete Time: 04:21 [facility] 11/06 03:08 Order name: D-Dimer; Complete Time: 04: [facility] 11/06 03:18 Order name: CKMB Creatine Kinase MB [facility] 11/06 03:18 Order name: CKMB Creatine Kinase MB [facility] 11/06 03:19 Order name: CKMB Creatine Kinase MB [facility] 11/06 03:19 Order name: CBC with Automated Diff [facility] 11/06 00:10 Order name: Chest Single View XRAY 1 11/06 03:19 Order name: CBC with Automated Diff [facility] 11/06 03:19 Order name: CKMB Creatine Kinase MB [facility] 11/06 03:19 Order name: Comprehensive Metabolic Panel [facility] 11/06 03:19 Order name: Comprehensive Metabolic Panel [facility] 11/06 03:19 Order name: Troponin I [facility] 11/06 03:19 Order name: Troponin I [facility] 11/06 03:19 Order name: Troponin I [facility] 11/06 03:31 Order name: COVID-19 : Document "Date of Symptom Onset" if Symptomatic. 2 11/06 03:44 Order name: CORONAVIRUS [facility] 11/06 04:36 Order name: SARS-COV-2 RT PCR [facility] 11/06 08:01 Order name: Glucose, Ancillary Testing [facility] 11/06 09:32 Order name: Urinalysis [facility] 11/05 23:16 Order name: EKG - Nurse/Tech; Complete Time: 23:22 [facility] 11/05 23:16 Order name: EKG; Complete Time: 23:17 [facility] 11/06 02:06 Order name: Cardiac monitoring; Complete Time: 02:50 [facility] 11/06 02:06 Order name: IV Saline Lock; Complete Time: 03:06 [facility] 11/06 02:06 Order name: Labs collected and sent; Complete Time: 06:20 [facility] 11/06 02:06 Order name: O2 Per Protocol; Complete Time: 03:06 [facility] 11/06 02:06 Order name: O2 Sat Monitoring; Complete Time: 03:06 [facility] 11/06 03:19 Order name: CONS Pharmacy Consult [facility] 11/06 03:19 Order name: Consistent Carb (ADA) 1800 Oj EDMS EC:52 Rate is 75 beats/min. Rhythm is regular. QRS [place] is Normal. CT interval is normal. QRS you interval is normal. QT interval is normal. No Q waves. T waves are Normal. No ST changes noted. Clinical impression: Normal ECG and No evidence of ischemia. Interpreted by me. Reviewed by me. Administered Medications: 03:29 Drug: Lovenox 1 mg/kg Route: Sub-Q; Site: abdomen; ll2 04:30 Follow up: Response: No adverse reaction ll2 03:29 Drug: Lopressor 25 mg Route: PO; ll2 04:30 Follow up: Response: No adverse reaction ll2 03:30 Drug: NS 0.9% 1000 ml Route: IV; Rate: 125 ml/hr; Site: left forearm; ll2 03:31 Drug: Aspirin 162 mg Route: PO; ll2 04:30 Follow up: Response: No adverse reaction ll2 05:30 Drug: Magnesium Sulfate 1 grams Route: IVPB; Infused Over: 1 hrs; Site: right forearm; ll2 Disposition: 11/06/20 02:56 Hospitalization ordered by Derek Benites for Observation. Preliminary diagnosis are Chest pain, unspecified, Type 2 diabetes mellitus, Hypomagnesemia. - Bed requested for Telemetry/MedSurg (observation). - Status is Observation. hb - Condition is Fair. - Problem is new. - Symptoms have improved. Signatures: Dispatcher [employer] EDMS Kathryn Arroyo RN RN mw Woody, Diana RN Иван Valles MD MD cha Pena, Laura, RN RN lp1 Wendi Anderson RN RN Joann Schofield RN RN ll2 Corrections: (The following items were deleted from the chart) 03:56 02:56 Hospitalization Ordered by Derek Benites MD for Observation. Preliminary mw diagnosis is Chest pain, unspecified; Type 2 diabetes mellitus. Bed requested for Telemetry/MedSurg (Inpatient). Status is Observation. Condition is Fair. Problem is new. Symptoms have improved. you 04:22 03:56 11/06/2020 02:56 Hospitalization Ordered by Derek Benites MD for Observation. you Preliminary diagnosis is Chest pain, unspecified; Type 2 diabetes mellitus. Bed requested for [facility] ER HOLD. Status is Observation. Condition is Fair. Problem is new. Symptoms have improved. mw 08:53 04:22 11/06/2020 02:56 Hospitalization Ordered by Derek Benites MD for Observation. dw Preliminary diagnosis is Chest pain, unspecified; Type 2 diabetes mellitus; Hypomagnesemia. Bed requested for [facility] ER HOLD. Status is Observation. Condition is Fair. Problem is new. Symptoms have improved. you 09:55 08:53 11/06/2020 02:56 Hospitalization Ordered by Derke Benites MD for Observation. hb Preliminary diagnosis is Chest pain, unspecified; Type 2 diabetes mellitus; Hypomagnesemia. Bed requested for Telemetry/MedSurg (observation). Status is Observation. Condition is Fair. Problem is new. Symptoms have improved. dw
[2020-11-06] MEDS ORDERED: ONDANSETRON 4 MG/2 ML VIAL IV PRN (03:15)
[2020-11-06] MEDS ORDERED: ACETAMINOPHEN 500 MG TAB PO PRN (03:15)
[2020-11-06] MEDS ORDERED: MORPHINE 2 MG/ML SYR IV PRN (03:15)
[2020-11-06 03:18] LABS: Absolute Lymphocytes (CBC) 2.8 K/uL (0.7-4.9); Basophils % 0.6 % (0-1.3); Hematocrit 40.5 % (36.0-45.0); Lymphocytes % 31.6 % (15.3-44.8); MPV 9.2 fL (7.6-11.3); RBC Red Blood Cell Count 4.67 M/uL (3.86-4.86)
--- NOTE | 2020-11-06 03:30 | P.HP ---
Certification for Inpatient Patient admitted to: Observation With expected LOS: <2 Midnights Practitioner: I am a practitioner with admitting privileges, knowledge of patient current condition, hospital course, and medical plan of care. Services: Services provided to patient in accordance with Admission requirements found in Title 42 Section 412.3 of the Code of Federal Regulations Patient History Date of Service: 11/06/20 Reason for admission: Chest Pain History of Present Illness: 60 yrs old female past medical history of diabetes, anxiety came to ER with chest pain which has been going on for last few days and has been so worsening last night and was brought to ER. chest pain is located in substernal pressure-like radiating to the left time associated with numbness of the left hand. No fever no chills. Denies any shortness of breath. No modifying factors. Denies any diaphoresis. Patient was assessed in the ER and was admitted for chest pain to rule out ACS. At the time of interview chest pain is better, vital signs were stable Stop patient is being admitted for close monitoring to rule out ACS and trending of troponin Allergies Penicillins Allergy (Verified 11/07/16 21:55) "pass out" Home medications list reviewed: Yes Home Medications: Insulin -Regular Human [Novolin -R*] 18 unit SQ BID 11/06/16 Metformin ER [Glucophage ER*] 1,000 mg PO DAILY 11/06/16 lisinopriL [Lisinopril] 10 mg PO DAILY 11/06/16 Guaif/Dm [Robitussin Dm*] 10 ml PO Q6H PRN #100 ml 11/08/16 Insulin Glargine Human [Lantus*] 20 units SQ BEDTIME #10 ml 11/08/16 Magnesium Oxide [Mag 0X*] 400 mg PO BID #60 tab 11/08/16 levoFLOXacin [Levaquin*] 500 mg PO DAILY #7 tab 11/08/16 - Past Medical/Surgical History Diabetic: Yes Past Medical History: Reviewed- Non-Contributory -: IDDM Past Surgical History: Reviewed- Non-Contributory -: Cholecystectomy; -: Tonsillectomy -: Tubal ligation -: - Social History Smoking Status: Never smoker Alcohol use: No CD- Drugs: No Caffeine use: No Review of Systems 10-point ROS is otherwise unremarkable Physical Examination - Vital Signs Temperature: 98.2 F Blood Pressure: 132/78 Pulse: 84 Respirations: 18 - Physical Exam General: Alert, In no apparent distress, Oriented x3 HEENT: Atraumatic, Normocephalic Neck: Supple, 2+ carotid pulse no bruit Respiratory: Clear to auscultation bilaterally, Normal air movement Cardiovascular: No edema, Regular rate/rhythm, Normal S1 S2 Capillary refill: <2 Seconds Gastrointestinal: Soft and benign, W/out hepatosplenomegaly Musculoskeletal: No clubbing, No swelling Integumentary: No rashes, No breakdown Neurological: Normal speech, Normal strength at 5/5 x4 extr Lymphatics: No axilla or inguinal lymphadenopathy - Studies Laboratory Data (last 24 hrs) 11/06/20 03:04: PT 11.8, INR 1.00 11/06/20 03:04: WBC 8.90, Hgb 13.7, Hct 40.5, Plt Count 215 Assessment and Plan - Problems (Diagnosis) (1) Chest pain Current Visit: Yes Status: Acute (2) Diabetes Current Visit: Yes Status: Acute - Plan Chest pain to rule out ACS Diabetes Hypertension Hypomagnesemia Plan Monitor under telemetry Trend cardiac enzymes Start on aspirin statin will get a D-dimer will get a CT of the chest if D-dimer is elevated Insulin sliding scale Will get an A1c and lipid panel in a.m. will replace electrolytes Antihypertensives titrated GI/DVT prophylaxis Discharge Plan: Home Plan to discharge in: 24 Hours - Advance Directives Does patient have a Living Will: No Does patient have a Durable POA for Healthcare: No Time Spent Managing Pts Care (In Minutes): 42
[2020-11-06] MEDS ORDERED: NA CHLORIDE 0.9% 1,000 ML ONE (03:31)
[2020-11-06] MEDS ORDERED: ASPIRIN EC 81 MG TAB PO ONE (03:31)
[2020-11-06] MEDS ORDERED: METOPROLOL TAR 25 MG TAB ONE (03:31)
[2020-11-06] MEDS ORDERED: ENOXAPARIN 80 MG/0.8 ML SQ ONE (03:31)
[2020-11-06 03:42] LABS: ALT/SGPT 35 U/L (12-78); AST/SGOT 22 U/L (15-37); Albumin 3.3 g/dL (3.4-5.0); Alkaline Phosphatase 86 U/L (45-117); BUN Blood Urea Nitrogen 11 mg/dL (7-18); Bicarbonate 26 mmol/L (21-32); Bilirubin Direct 0.1 mg/dL (0-0.2); Bilirubin Total 0.3 mg/dL (0.2-1.0); Glucose Level 226 mg/dL (74-106); Lipase 415 U/L (73-393); Magnesium 1.6 mg/dL (1.8-2.4); NT PRO-BNP 12 pg/mL (<125); Potassium 3.9 mmol/L (3.5-5.1); Sodium Level 137 mmol/L (136-145); Troponin (Emerg Dept Use Only) < 0.02 ng/mL (0.0-0.045)
[2020-11-06] MEDS ORDERED: D50W 25 GM/50 ML SYRINGE IV PRN (04:00)
[2020-11-06] MEDS ORDERED: GLUCAGON 1 MG/VIAL IM PRN (04:00)
[2020-11-06] MEDS ORDERED: MAGNESIUM SULFATE 1 gm IVPB 1 GM/100 ML BAG IV ONE (05:07)
[2020-11-06] MEDS: INSULIN -REGULAR HUMAN 50 UNIT/0.5 ML ML SQ SCH ×6 (07:30→21:00)
[2020-11-06 08:18] VITALS: BMI 34.0
[2020-11-06 08:31] LABS: CKMB Creatine Kinase MB < 1.0 ng/mL (0.3-3.6); Troponin I < 0.02 ng/mL (0.0-0.045)
[2020-11-06] MEDS: ASPIRIN EC 81 MG TAB PO SCH (08:36)
[2020-11-06] MEDS: MAGNESIUM OXIDE 400 MG TAB PO SCH ×2 (08:36→21:00)
[2020-11-06] MEDS: lisinopriL 10 MG TAB PO SCH (08:38)
[2020-11-06] MEDS: ENOXAPARIN 40 MG/0.4 ML SQ SCH (08:39)
--- NOTE | 2020-11-06 08:39 | RAD REPORT ---
EXAM DESCRIPTION: Flor Single View11/06/2020 1:21 am CLINICAL HISTORY: sob COMPARISON: 2018 FINDINGS: The lungs appear clear of acute infiltrate. The heart is normal size IMPRESSION: No acute abnormalities displayed
[2020-11-06] MEDS ORDERED: D50W 25 GM/50 ML VIAL IV PRN (09:00)
[2020-11-06] MEDS ORDERED: INSULIN -REGULAR HUMAN 50 UNIT/0.5 ML ML ONE (09:01)
[2020-11-06] MEDS ORDERED: MAGNESIUM OXIDE 400 MG TAB ONE (09:02)
[2020-11-06] MEDS ORDERED: ENOXAPARIN 40 MG/0.4 ML SQ ONE (09:02)
[2020-11-06 09:21] LABS: Urine Appearance CLEAR; Urine Bilirubin NEGATIVE (NEG); Urine Blood NEGATIVE (NEG); Urine Color YELLOW; Urine Glucose NEGATIVE (NEG); Urine Protein NEGATIVE (NEG); Urine Specific Gravity <=1.005 (1.005-1.030); Urine Urobilinogen 0.2 mg/dL (0.2-1.0)
[2020-11-06 09:32] LABS: Urine Microscopic Reflex ORDER UMIC; Urine RBC NONE SEEN /HPF (NONE SEEN)
[2020-11-06 09:33] LABS: Urine Bacteria <20 /HPF (<20)
--- NOTE | 2020-11-06 15:16 | RAD REPORT ---
EXAM DESCRIPTION: CT - Chest For Pe Angio - 11/06/2020 2:45 pm CLINICAL HISTORY: Chest pain COMPARISON: None. TECHNIQUE: Dynamically enhanced axial 3 mm thick images of the chest were obtained during administra tion of <100> mL Isovue 370 IV contrast. Coronal and oblique reconstruction images were generated and reviewed. Exam utilizes a protocol for optimal evaluation of pulmonary arterial tree. Maximum intensity projections 3D imaging was utilized All CT scans are performed using dose optimization technique as appropriate and may include automated exposure control or mA/KV adjustment according to patient size. FINDINGS: A pulmonary embolus is not seen. A thoracic aortic aneurysm is not noted. A pleural effusion is not seen. A pericardial effusion is not seen. A lung consolidation is not present. 3 millimeter nodule right upper lobe. 1.5 mm subpleural nodule right lower lobe IMPRESSION: Negative for a pulmonary embolism. 3 millimeter nodule right upper lobe. If patient is high risk then followup CT chest in 6-12 months r ecommended
[2020-11-06] MEDS ORDERED: INSULIN GLARGINE 100 UNITS/ML SQ SCH (21:00)
[2020-11-06] MEDS ORDERED: ATORVASTATIN 40 MG TAB PO SCH (21:00)
[2020-11-06 23:49] VITALS: O2SAT 95
[2020-11-07 04:54] LABS: Absolute Lymphocytes (CBC) 3.6 K/uL (0.7-4.9); Lymphocytes % 44.1 % (15.3-44.8); MPV 9.7 fL (7.6-11.3); RBC Red Blood Cell Count 4.58 M/uL (3.86-4.86)
[2020-11-07 05:15] LABS: ALT/SGPT 29 U/L (12-78); AST/SGOT 19 U/L (15-37); Albumin 3.1 g/dL (3.4-5.0); Alkaline Phosphatase 75 U/L (45-117); BUN Blood Urea Nitrogen 13 mg/dL (7-18); Bicarbonate 30 mmol/L (21-32); Bilirubin Total 0.2 mg/dL (0.2-1.0); Glucose Level 140 mg/dL (74-106); Magnesium 1.9 mg/dL (1.8-2.4); Phosphorus 3.6 mg/dL (2.5-4.9); Potassium 3.9 mmol/L (3.5-5.1); Protein, Total 7.2 g/dL (6.4-8.2); Sodium Level 142 mmol/L (136-145)
[2020-11-07] MEDS: INSULIN -REGULAR HUMAN 50 UNIT/0.5 ML ML SQ SCH ×2 (07:28→09:00)
--- NOTE | 2020-11-07 08:15 | P.DS ---
Admission Date: 11/06/20 Discharge Date: 11/07/20 Primary Care Provider: Dr. Wright([facility] - [place], [place]) Disposition: ROUTINE DISCHARGE Discharge Condition: GOOD Reason for Admission: Chest Pain Consultations: Cardiology-Dr. Oliveira Procedures: COVID: Negative CT Chest: No pulmonary embolism. No consolidation noted. 3 mm nodule to the right upper lobe and a 1.5 mm subpleural nodule to the right lower lobe. ECHO: Obtained Cardiac Stress Test: EF 66%. No stress induced ischemia noted. Medical Problem List: Chest pain, atypical Hypertension Diabetes mellitus type 2 insulin-dependent CT showing 3 mm nodule to the right upper lobe and 1.5 mm subpleural nodule to the right lower lobe Obesity, BMI 34 Brief History of Present Illness: 60-year-old female with history of diabetes, hypertension presented with chest pain. Patient was evaluated in the emergency room. Patient admitted for further evaluation and treatment. Hospital Course: Patient presented with chest pain. Symptoms were atypical. Patient was admitted for further evaluation and treatment. Cardiac enzymes unremarkable. Patient was COVID negative. CT scan showed no evidence of pneumonia or pulmonary emb olism. Patient was seen evaluated by Cardiology. Cardiology recommended echocardiogram and cardiac stress test. Both performed. EF was 66%-normal. No stress induced ischemia noted. No further cardiac intervention was required. At discharge patient will continue with her current medications. Patient may also continue with aspirin 81 mg daily. Chest pain may be GERD related. Recommend to start Pepcid 20 mg 1 pill twice daily at discharge. Patient would benefit with GI evaluation as an outpatient. A list of GI in the area will be provided. Recommend patient to follow up with cardiology in 2-4 weeks to follow up this hospitalization. Patient with hypertension. This has remained stable. At discharge she will continue with her current medication-lisinopril 10 mg daily. Patient also takes magnesium oxide 400 mg 1 pill twice daily. Recommend to maintain blood pressure less than 130/80. Further adjustment can be done by her PCP. Patient with diabetes mellitus type 2 insulin dependent. At discharge she will continue with her current medications-Lantus 20 units subcu every bedtime, Novolin R 18 units subcu twice daily, and Glucophage 1000 mg daily. Recommend to maintain blood sugar less than 140 fasting and less than 200 after meals. Further adjustment can be done by her PCP. Patient had CT scan showing 3 mm nodule to the right upper lobe in 1.5 mm subpleural nodule to the right lower lobe. Recommend to recheck CT scan in 6-12 months to monitor stability. This can be done with the help of her PCP. Patient reported some changes to her smell. Patient may have underlying allergic rhinitis. Recommend to continue Flonase 1 spray per nostril twice daily. If symptoms persist recommend follow up with ENT as an outpatient to further evaluate and address. Lifestyle modification education will be provided. Vital Signs/Physical Exam: Temp Pulse Resp BP Pulse Ox 97.6 F 68 14 117/58 L 96 11/07/20 04:00 11/07/20 04:00 11/07/20 04:00 11/07/20 04:00 11/07/20 04:00 General: Alert, In no apparent distress, Oriented x3, Cooperative HEENT: Atraumatic Neck: Supple Respiratory: Clear to auscultation bilaterally, Normal air movement Cardiovascular: Normal pulses, Regular rate/rhythm Gastrointestinal: Normal bowel sounds, Soft and benign, Non-distended, No masses, No rebound, No guarding Neurological: Normal speech, Normal strength at 5/5 x4 extr, Normal tone, Normal affect Laboratory Data at Discharge: WBC 8.20 K/uL (4.3-10.9) 11/07/20 04:12 Hgb 13.2 g/dL (12.0-15.0) 11/07/20 04:12 Hct 40.0 % (36.0-45.0) 11/07/20 04:12 Plt Count 202 K/uL (152-406) 11/07/20 04:12 PT 11.8 SECONDS (9.5-12.5) 11/06/20 03:04 INR 1.00 11/06/20 03:04 Sodium 142 mmol/L (136-145) 11/07/20 04:12 Potassium 3.9 mmol/L (3.5-5.1) 11/07/20 04:12 BUN 13 mg/dL (7-18) 11/07/20 04:12 Creatinine 0.53 mg/dL (0.55-1.3) L 11/07/20 04:12 Glucose 140 mg/dL (74-106) H 11/07/20 04:12 Phosphorus Cancelled 11/07/20 05:00 Magnesium 1.9 mg/dL (1.8-2.4) 11/07/20 04:12 Total Bilirubin 0.2 mg/dL (0.2-1.0) 11/07/20 04:12 AST 19 U/L (15-37) 11/07/20 04:12 ALT 29 U/L (12-78) 11/07/20 04:12 Alkaline Phosphatase 75 U/L (45-117) 11/07/20 04:12 Troponin I < 0.02 ng/mL (0.0-0.045) 11/06/20 11:33 Lipase 415 U/L (73-393) H 11/06/20 03:04 Home Medications: Insulin -Regular Human [Novolin -R*] 18 unit SQ BID 11/06/16 Metformin ER [Glucophage ER*] 1,000 mg PO DAILY 11/06/16 lisinopriL [Lisinopril] 10 mg PO DAILY 11/06/16 Insulin Glargine Human [Lantus*] 20 units SQ BEDTIME #10 ml 11/08/16 Magnesium Oxide [Mag 0X*] 400 mg PO BID #60 tab 11/08/16 Aspirin [Aspirin EC 81 MG] 81 mg PO DAILY #90 tablet. 11/07/20 Famotidine [Pepcid] 20 mg PO BID #60 tab 11/07/20 Fluticasone [Flonase 50mcg Nasal Circle] 1 sprays NS DAILY #1 btl 11/07/20 New Medications: Aspirin [Aspirin EC 81 MG] 81 mg PO DAILY #90 tablet. Fluticasone [Flonase 50mcg Nasal Circle] 1 sprays NS DAILY #1 btl Famotidine [Pepcid] 20 mg PO BID #60 tab Patient Discharge Instructions: Recommend follow up with PCP in 1 week to follow up this hospitalization. Patient presented with chest pain. Symptoms were a typical. Patient was admitted for further evaluation and treatment. Cardiac enzymes unremarkable. Patient was COVID negative. CT scan showed no evidence of pneumonia or pulmonary embolism. Patient was seen evaluated by Cardiology. Cardiology recommended echocardiogram and cardiac stress test. Both performed. EF was 66%-normal. No stress induced ischemia noted. No further cardiac intervention was required. At discharge patient will continue with her current medications. Patient may also continue with aspirin 81 mg daily. Chest pain may be GERD related. Recommend to start Pepcid 20 mg 1 pill twice daily at discharge. Patient would benefit with GI evaluation as an outpatient. A list of GI in the area will be provided. Recommend patient to follow up with cardiology in 2-4 weeks to follow up this hospitalization. Patient with hypertension. This has remained stable. At discharge she will continue with her current medication-lisinopril 10 mg daily. Patient also takes magnesium oxide 400 mg 1 pill twice daily. Recommend to maintain blood pressure less than 130/80. Further adjustment can be done by her PCP. Patient with diabetes mellitus type 2 insulin dependent. At discharge she will continue with her current medications-Lantus 20 units subcu every bedtime, Novolin R 18 units subcu twice daily, and Glucophage 1000 mg daily. Recommend to maintain blood sugar less than 140 fasting and less than 200 after meals. Further adjustment can be done by her PCP. Patient had CT scan showing 3 mm nodule to the right upper lobe in 1.5 mm subpleural nodule to the right lower lobe. Recommend to recheck CT scan in 6-12 months to monitor stability. This can be done with the help of her PCP. Patient reported some changes to her smell. Patient may have underlying allergic rhinitis. Recommend to continue Flonase 1 spray per nostril twice daily. If symptoms persist recommend follow up with ENT as an outpatient to further evaluate and address. Lifestyle modification education will be provided. Diet: ADA Activity: Ad flor Followup: LACI AGUERO [Primary Care Provider] - Time spent managing pt's care (in minutes): 55
--- NOTE | 2020-11-07 08:20 | EKG ---
Test Date: 2020-11-05 Test Time: 23:19:46 Technician Automated Equipment: YOANDY MEASUREMENT RESULTS: Intervals: Rate: 75 NM: 134 QRSD: 72 QT: 388 QTc: 433 [place]on: P: -3 NM: 134 QRS: -2 T: 12 INTERPRETIVE STATEMENTS: Normal sinus rhythm Normal ECG Compared to ECG 01/19/2018 14:49:05 Myocardial infarct finding no longer present Electronically Signed On 11-07-20 08:17:54 [employer] by Raj Oliveira
[2020-11-07] MEDS ORDERED: REGADENOSON 0.4 MG/5 ML SYR IV ONE (08:33)
[2020-11-07 09:00] VITALS: BP 138/61; TEMP 97.3
[2020-11-07] MEDS: ASPIRIN EC 81 MG TAB PO SCH (09:00)
[2020-11-07] MEDS ORDERED: POTASSIUM CL SA 10 MEQ TAB PO ONE (09:00)
[2020-11-07] MEDS: ENOXAPARIN 40 MG/0.4 ML SQ SCH (09:00)
[2020-11-07] MEDS: lisinopriL 10 MG TAB PO SCH (09:00)
[2020-11-07] MEDS: MAGNESIUM OXIDE 400 MG TAB PO SCH (10:08)
--- NOTE | 2020-11-07 10:37 | RAD REPORT ---
EXAM DESCRIPTION: NM - Rest Stress Cardiac Imaging - 11/07/2020 9:45 am CLINICAL HISTORY: Chest pain. COMPARISON: None. TECHNIQUE: The patient was administered approximately 10.9 mCi of Tc 99m Sestamibi prior to resting SPECT imaging of the heart. The patient was then administered approximately 31.2 mCi of Tc 99m Sestam ibi following exercise or pharmacologic stress. Multiplanar SPECT images were reviewed. FINDINGS: There is uniformity of radiotracer uptake involving the entire left ventricular myocardiu m on rest and stress images. The left ventricular ejection fraction equals 66% IMPRESSION: Negative for a myocardial perfusion defect
--- NOTE | 2020-11-07 13:07 | CON ---
Date of Consultation: 11/07/2020 Reason For Consultation: Chest pain. History Of Present Illness: Ms. Gibson is a 60-year-old, who has diabetes, anxiety, depression. Cam e in with substernal chest pressure that lasted for longer than 24 hours with some radiation to her l eft arm. She has also been having edema in both hands and numbness in her hands and feet. She feels that she may be slightly anxious. Has had a small cardiac workup in 2017 including normal echocardi ogram and normal carotid Doppler. She denied any nausea, vomiting, diaphoresis, PND, orthopnea, palp itations, or syncope. Denied any fever or chills. So far, her workup has been negative, except for a slightly low magnesium of 1.6 and glucose of 309. Her EKG and chest x-ray are normal. Her BNP and troponin are normal. Allergies: SHE IS ALLERGIC TO CLINDAMYCIN, PENICILLIN, AND TRAMADOL. Medications: At home include insulin, metformin, lisinopril, but she claims that she is not very com pliant with her medicines. Review of Systems: Positive for paresthesias and edema and anxiety. Social History: Negative. Family History: Noncontributory. Physical Examination: Vital Signs: Stable, afebrile. HEENT: Negative. Neck: Supple with no bruit. Chest: Clear. Cardiac: Revealed a regular rhythm and rate. No murmurs, gallops, or rubs. Abdomen: Benign. Extremities: Revealed no clubbing, cyanosis, or edema. Diagnostic Data: As stated earlier. Impression And Plan: Atypical chest pain and the patient with many risk factors including diabetes, possible dyslipidemia and hypertension that is atypical, but her symptoms have lasted for very long, but yet we do not have any abnormalities on the EKG or troponin. Her paraesthesias secondary to anxi ety or neuropathy from diabetes. She has some nonspecific edema in her feet and legs. Her hands are not consistent with anything at this point. Nevertheless, the patient needs to have an aggressive w orkup including an echocardiogram and a pharmacological stress test today. We will see what these sh ow before making further decisions. PATRICE/GONZALOL Voice ID: [id number] Report ID: [id number]
--- NOTE | 2020-11-07 13:44 | TREADPHA ---
DX: CHEST PAIN Date of Study: 11/27/2020 Ht: 5' 0 " Wt: 174 lb 0.174 oz Consulting Physician: JAMIL MEDICATIONS: TYLENOL, ASPIRIN, LIPITOR, DEXTROSE, LOVENOX, GLUCAGEN, LANTUS, NOVOLIN-R, ZOFRAN HISTORY: INSULIN DEPENDENT DIABETES MELLITUS PHYSICIAL EXAMINATION: RESTING B.P.: 128/68 RESTING H.R.: 60 RESTING EKG: WITHIN NORMAL LIMITS PROTOCOL: PHARMACOLOGIC EXERCISE TIME: 3:30 B.P. AT PEAK STRESS: IMPRESSION: NORMAL ELECARDIOGRAM CHANGE OF ISCHEMIA WITH LEXISCAN.
--- NOTE | 2020-11-07 14:14 | ECHO ---
HEIGHT: 5 ft 0 in WEIGHT: 174 lb 0.174 oz DATE OF STUDY: 11/27/[address]: Raj Oliveira MD 2-DIMENSIONAL: YES M.MODE: YES DOPPLER: YES COLOR FLOW: YES TDS: PORTABLE: DEFINITY: BUBBLE STUDY: DIAGNOSIS: CHEST PAIN CARDIAC HISTORY: CATHERIZATION: SURGERY: PROSTHETIC VALVE: PACEMAKER: MEASUREMENTS (cm) DIASTOLIC (NORMALS) SYSTOLIC (NORMALS) IVSd 1.0 (0.6-1.2) LA Diam 3.1 (1.9-4.0) LVEF 55% LVIDd 3.4 (3.5-5.7) LVIDs 2.5 (2.0-3.5) %FS 28% LVPWd 1.0 (0.6-1.2) Ao Diam 2.4 (2.0-3.7) 2 DIMENSIONAL ASSESSMENT: RIGHT ATRIUM: NORMAL LEFT ATRIUM: NORMAL RIGHT VENTRICLE: NORMAL LEFT VENTRICLE: NORMAL TRICUSPID VALVE: NORMAL MITRAL VALVE: NORMAL PULMONIC VALVE: NORMAL AORTIC VALVE: NORMAL PERICARDIAL EFFUSION: NONE AORTIC ROOT: NORMAL LEFT VENTRICULAR WALL MOTION: NORMAL DOPPLER/COLOR FLOW: NORMAL COMMENTS: NORMAL LEFT VENTRICULAR EJECTION FRACTION OF 55-60%. NORMAL DIASTOLIC FUNCTION. NORMAL WALL MOTION. TECHNOLOGIST: NIEVES GORDON
--- NOTE | 2020-11-08 21:53 | P.PN ---
Subjective Date of Service: 11/06/20 Patient doing well no new complaints. Patient scheduled for stress test in the a.m. prior to discharge Review of Systems 10-point ROS is otherwise unremarkable Physical Examination - Vital Signs Temperature: 97.3 F Blood Pressure: 138/61 Pulse: 66 Respirations: 18 Pulse Ox (%): 98 - Physical Exam General: Alert, In no apparent distress, Oriented x3 Respiratory: Clear to auscultation bilaterally, Normal air movement Cardiovascular: Regular rate/rhythm, Normal S1 S2, No murmurs Gastrointestinal: Normal bowel sounds, Soft and benign, Non-distended, No tenderness Musculoskeletal: No clubbing, No swelling, No tenderness Neurological: Sensation intact, Cranial nerves 3-12 intact - Studies Medications List Reviewed: Yes Assessment & Plan - Problems (Diagnosis) (1) Chest pain Status: Acute - Plan Plan: - Serial troponins and EKG - Cardiology consultation - Echocardiogram and stress test - Anti-platelet therapy, anti coagulation, beta-juan a, statin, and O2 as needed - IV morphine for pain - Nitro p.r.n. - Advance Directives Does patient have a Living Will: No Does patient have a Durable POA for Healthcare: No
== END 2020-11-07 12:12 | disposition home or self-care (01) | DRG 392 ==
LOC: ER 22:23 → ERHOLD 11-06 03:24 → OBSVTOIN 11-06 08:23 → 2ND 11-06 09:26
PROVIDERS: ADMIT Family Medicine; ATTEND Family Medicine
DX: K21.9 Gastro-esophageal reflux disease without esophagitis (principal); E11.9 Type 2 diabetes mellitus without complications; J30.9 Allergic rhinitis, unspecified; E83.42 Hypomagnesemia; I10 Essential (primary) hypertension; F41.9 Anxiety disorder, unspecified; E78.5 Hyperlipidemia, unspecified; E66.9 Obesity, unspecified; Z68.34 Body mass index [BMI] 34.0-34.9, adult; Z88.5 Allergy status to narcotic agent; Z88.1 Allergy status to other antibiotic agents; Z88.0 Allergy status to penicillin; Z79.82 Long term (current) use of aspirin; Z91.14 Patient's other noncompliance with medication regimen; Z79.899 Other long term (current) drug therapy; Z98.51 Tubal ligation status; Z90.49 Acquired absence of other specified parts of digestive tract; Z79.4 Long term (current) use of insulin; Z20.822 Contact with and (suspected) exposure to COVID-19
CPT/HCPCS: 36415; 71045; 71275; 78452; 80048; 80053; 80076; 81003; 81015; 82553; 82947; 83690; 83735; 83880; 84100; 84484; 85025; 85379; 85610; 93005; 93017; 93306; 96372; 96374; 99285; A9500; J1650; J1815; J2785; J3475; J7030; Q9967; U0003

== ENCOUNTER 2024-02-07 14:19 | Emergency (ER) | payer SELFPAY ==
--- NOTE | 2024-02-07 15:43 | RAD REPORT ---
EXAM DESCRIPTION: RAD - Chest Single View - 02/07/2024 3:27 pm CLINICAL HISTORY: COUGH COMPARISON: Chest Single View dated 11/06/2020; Chest Single View dated 01/19/2018; Chest Single View dated 11/06/2016; CHEST SINGLE VIEW dated 05/08/2014 FINDINGS: Lines: None. Lungs: No evidence of edema or pneumonia. Pleural: No significant pleural effusions or pneumothorax. Cardiac: The heart size is within normal limits. Mediastinum: Within normal limits. Bones: No acute fractures. Other: None IMPRESSION: No acute cardiopulmonary disease.
[2024-02-07 16:42] LABS: Absolute Eosinophils 0.3 K/uL (0-0.5); Absolute Lymphocytes (CBC) 3.3 K/uL (0.7-4.9); Absolute Monocytes 0.5 K/uL (0.1-1.3); Absolute Neutrophil 3.8 K/uL (1.8-8.0); Basophils % 0.4 % (0-1.3); Eosinophils % 3.5 % (0-4.4); Hematocrit 45.7 % (36.0-45.0); Hemoglobin 15.5 g/dL (12.0-15.0); Lymphocytes % 41.8 % (15.3-44.8); MCHC 33.9 g/dL (32.0-36.0); MCV 85.6 fL (80-100); MPV 9.7 fL (7.6-11.3); Monocytes % 6.4 % (3.3-12.3); Neutrophils % 47.9 % (41.7-73.7); Platelets 200 thou/uL (152-406); RBC Red Blood Cell Count 5.33 M/uL (3.86-4.86); Red Cell Distribution Width 13.2 % (12.1-15.2)
[2024-02-07 16:48] LABS: SARS-CoV-2 Antigen CONTROL BLUE LINE VIS/BG OK; SARS-CoV-2 Antigen Rapid Res Negative (Negative)
[2024-02-07 17:00] LABS: Potassium 4.1 mEq/L (3.5-5.1); Sodium Level 129 mEq/L (136-145)
[2024-02-07 17:01] LABS: ALT/SGPT 44 U/L (13-56); AST/SGOT 21 U/L (15-37); Albumin 3.2 g/dL (3.4-5.0); Albumin/Globulin Ratio 0.7 (1.1-1.8); Alkaline Phosphatase 101 U/L (45-117); Anion Gap 11.1 mEq/L (5.0-15.0); BUN Blood Urea Nitrogen 18 mg/dL (7-18); Bicarbonate 27 mEq/L (21-32); Bilirubin Direct < 0.1 mg/dL (0-0.2); Bilirubin Indirect, Calculated ND mg/dL (0.2-0.8); Bilirubin Total 0.3 mg/dL (0.2-1.0); Globulin 4.7 g/dL (2.3-3.5); Glomerular Filtration Rate 66 ml/min (=/>90); Magnesium 1.6 mg/dL (1.6-2.4); NT PRO-BNP 9 pg/mL (<125); Protein, Total 7.9 g/dL (6.4-8.2); Troponin High Sensitivity 4.5 pg/mL (<58.9)
[2024-02-07 17:03] LABS: Glucose Level 439 mg/dL (74-106)
--- NOTE | 2024-02-07 17:22 | ER ---
Nurse's Notes [facility] Name: Milana Gibson Age: 63 yrs Sex: Female : 1960 Arrival Date: 02/07/2024 Time: 14:19 Bed 20 Private MD: Diagnosis: Hyperglycemia, upper respiratory infection Presentation: 02/06 14:29 Chief complaint: Patient states: "my blood sugar was 540 yesterday and today it's 490 aa5 and I have a cold". Coronavirus screen: congestion, cough unrelated to allergies. Ebola Screen: Patient denies travel to an Ebola-affected area in the 21 days before illness onset. Initial Sepsis Screen: Does the patient meet any 2 criteria? HR > 90 bpm. Does the patient have a suspected source of infection? No. Patient's initial sepsis screen is negative. Risk Assessment: Do you want to hurt yourself or someone else? Patient reports no desire to harm self or others. Onset of symptoms was February 2024. 14:29 Method Of Arrival: Ambulatory aa5 14:29 Acuity: LORNA 3 aa5 Historical: - Allergies: 14:30 Clindamycin; aa5 14:30 PENICILLINS; aa5 14:30 tramadol; aa5 - PMHx: 14:30 Depression; Diabetes - NIDDM; aa5 - PSHx: 14:30 Cholecystectomy; section; tubal ligation; Tonsillectomy; aa5 - Immunization history:: Adult Immunizations unknown. - Infectious Disease History:: Denies. - Social history:: Smoking status: Patient denies any tobacco usage or history of. Screenin:05 [facility] ED Fall Risk Assessment (Adult) History of falling in the last 3 months, db including since admission No falls in past 3 months (0 pts) Confusion or Disorientation No (0 pts) Intoxicated or Sedated No (0 pts) Impaired Gait No (0 pts) Mobility Assist Device Used No (0 pt) Altered Elimination Yes (1 pt) Score/Fall Risk Level 0 - 2 = Low Risk Oriented to surroundings, Maintained a safe environment. Abuse screen: Denies threats or abuse. Denies injuries from another. Nutritional screening: No deficits noted. Tuberculosis screening: No symptoms or risk factors identified. Assessment: 15:30 Reassessment: Patient appears in no apparent distress at this time. Patient and/or db family updated on plan of care and expected duration. Pain level reassessed. Patient is alert, oriented x 3, equal unlabored respirations, skin warm/dry/pink. 16:04 Reassessment: Patient appears in no apparent distress at this time. Patient and/or db family updated on plan of care and expected duration. Pain level reassessed. Patient is alert, oriented x 3, equal unlabored respirations, skin warm/dry/pink. HIGH BLOOD GLUCOSE AT HOME. General: Appears in no apparent distress. comfortable, Behavior is calm, cooperative. Pain: Denies pain. Neuro: Level of Consciousness is awake, alert, obeys commands, Oriented to person, place, time, situation. Cardiovascular: No deficits noted. Respiratory: Airway is patent Respiratory effort is even, unlabored, Respiratory pattern is regular, symmetrical. 16:35 Reassessment: CALLED LAB FOR RESULTS. STATES BLOOD IS NOW SPINNING AND PENDING RESULT. db NOTIFIED DR.. ABBOTT. 17:34 Reassessment: PATIENT AMBULATORY TO RESTROOM. db 17:59 Reassessment: Patient appears in no apparent distress at this time. Patient and/or db family updated on plan of care and expected duration. Pain level reassessed. Patient is alert, oriented x 3, equal unlabored respirations, skin warm/dry/pink. DC PENDING BG RECHECK. 18:04 Reassessment: Patient appears in no apparent distress at this time. Patient and/or db family updated on plan of care and expected duration. Pain level reassessed. Patient is alert, oriented x 3, equal unlabored respirations, skin warm/dry/pink. Vital Signs: 14:29 BP 116 / 74; Pulse 90; Resp 18 S; Temp 97.9(O); Pulse Ox 100% on R/A; Weight 80.74 kg aa5 (R); Height 5 ft. 0 in. (R); 15:45 BP 121 / 83; Pulse 92; Resp 19; Pulse Ox 96% on R/A; db 16:15 BP 125 / 75; Pulse 94; Resp 18; Pulse Ox 97% on R/A; db 14:29 Body Mass Index 34.76 (80.74 kg, 152.4 cm) aa5 ED Course: 14:21 Patient arrived in ED. rg4 14:24 Stewart Abbott MD is Attending Physician. sp3 14:29 Arm band placed on. aa5 14:30 Triage completed. aa5 14:58 Sena Singh, RN is Primary Nurse. db 15:29 Chest Single View In Process Unspecified. EDMS 15:35 COVID swab sent to lab. Flu and/or RSV swab sent to lab. db 15:45 Initial lab(s) drawn, by me, sent to lab. Inserted saline lock: 20 gauge in left db antecubital area, using aseptic technique. Blood collected. 16:05 Patient has correct armband on for positive identification. Bed in low position. Call db light in reach. Side rails up X 1. Provided Education on: PENDING LAB. Client placed on continuous cardiac and pulse oximetry monitoring. NIBP monitoring applied. monitoring and evaluation advisor on. Pulse ox on. NIBP on. Warm blanket given. Pillow given. 18:04 No provider procedures requiring assistance completed. IV discontinued, intact, db bleeding controlled, No redness/swelling at site. Administered Medications: 17:28 Drug: Insulin Regular Human IVP 10 units IVP once {Co-Signature: anna (Oxana Decker db RN).} Route: IVP; Site: left antecubital; 18:05 Follow up: Response: No adverse reaction db Medication: 16:05 VIS not applicable for this client. db Point of Care Testing: Blood Glucose: 14:34 Blood Glucose: 463 mg/dL; aa5 17:34 Blood Glucose: 428 mg/dL; db 17:59 Blood Glucose: 359 mg/dL; db Ranges: Outcome: 17:21 Discharge ordered by . sp3 18:04 Discharged to home ambulatory, db 18:04 Condition: stable 18:04 Discharge instructions given to patient, Instructed on discharge instructions, follow up and referral plans. Prescriptions given X 1, 18:05 Patient left the ED. db Signatures: Dispatcher [employer] EDMD Oxana Decker, RN RN aa5 Aurora Gibson 4 Stewart Abbott MD MD sp3 Benton, Danielle, RN RN db Oxana Decker RN [id number]
--- NOTE | 2024-02-07 17:22 | EDPHYS ---
Physician Documentation [facility] Name: Milana Gibson Age: 63 yrs Sex: Female : 1960 Arrival Date: 02/07/2024 Time: 14:19 Bed 20 Private MD: ED Physician Stewart Abbott HPI: 02/06 14:52 This 63 yrs old Female presents to ER via Ambulatory with complaints of High sp3 Blood Sugar. 14:52 63-year-old female with history of diabetes, depression now presents ED with chief sp3 complaint hyperglycemia and cough. Patient thinks that she may have an upper respiratory infection. She denies any polyuria, polydipsia, thirst, chest pain, shortness of breath, fever, headache, abdominal pain, vomiting, diarrhea, syncope, near syncope, focal neurological deficit, rash, known sick contacts, travel history, or any other signs or symptoms on ROS at this time.. Historical: - Allergies: 14:30 Clindamycin; aa5 14:30 PENICILLINS; aa5 14:30 tramadol; aa5 - PMHx: 14:30 Depression; Diabetes - NIDDM; aa5 - PSHx: 14:30 Cholecystectomy; section; tubal ligation; Tonsillectomy; aa5 - Immunization history:: Adult Immunizations unknown. - Infectious Disease History:: Denies. - Social history:: Smoking status: Patient denies any tobacco usage or history of. ROS: 14:53 Constitutional: Negative for fever, chills, and weight loss, Eyes: Negative for injury, sp3 pain, redness, and discharge, ENT: Negative for injury, pain, and discharge, Neck: Negative for injury, pain, and swelling, Cardiovascular: Negative for chest pain, palpitations, and edema, Abdomen/GI: Negative for abdominal pain, nausea, vomiting, diarrhea, and constipation, Back: Negative for injury and pain, MS/Extremity: Negative for injury and deformity, Skin: Negative for injury, rash, and discoloration, Neuro: Negative for headache, weakness, numbness, tingling, and seizure, Psych: Negative for depression, anxiety, suicide ideation, homicidal ideation, and hallucinations, Allergy/Immunology: Negative for hives, rash, and allergies, Hematologic/Lymphatic: Negative for swollen nodes, abnormal bleeding, and unusual bruising, 14:53 All other systems are negative, Exam: 14:53 Constitutional: This is a well developed, well nourished patient who is awake, alert, sp3 and in no acute distress. Head/Face: Normocephalic, atraumatic. Eyes: Pupils equal round and reactive to light, extra-ocular motions intact. Lids and lashes normal. Conjunctiva and sclera are non-icteric and not injected. Cornea within normal limits. Periorbital areas with no swelling, redness, or edema. ENT: Nares patent. No nasal discharge, no septal abnormalities noted. External auditory canals are clear. Oropharynx with no redness, swelling, or masses, exudates, or evidence of obstruction, uvula midline. Mucous membranes moist. Neck: Trachea midline, no thyromegaly or masses palpated, and no cervical lymphadenopathy. Supple, full range of motion without nuchal rigidity, or vertebral point tenderness. No Meningismus. Chest/axilla: Normal chest wall appearance and motion. Nontender with no deformity. No lesions are appreciated. Cardiovascular: Regular rate and rhythm with a normal S1 and S2. No gallops, murmurs, or rubs. Normal PMI, no JVD. No pulse deficits. Respiratory: Lungs have equal breath sounds bilaterally, clear to auscultation and percussion. No rales, rhonchi or wheezes noted. No increased work of breathing, no retractions or nasal flaring. Back: No spinal tenderness. No costovertebral tenderness. Full range of motion. Skin: Warm, dry with normal turgor. Normal color with no rashes, no lesions, and no evidence of cellulitis. MS/ Extremity: Pulses equal, no cyanosis. Neurovascular intact. Full, normal range of motion. Neuro: Awake and alert, GCS 15, oriented to person, place, time, and situation. Cranial nerves II-XII grossly intact. Motor strength 5/5 in all extremities. Sensory grossly intact. Cerebellar exam normal. Normal gait. Psych: Awake, alert, with orientation to person, place and time. Behavior, mood, and affect are within normal limits. 15:27 ECG was reviewed by the Attending Physician. EKG demonstrates normal sinus rhythm at 95 sp3 bpm with normal intervals, normal QRS, normal axis, nonspecific diffuse ST's ST changes without evidence of acute ischemia. Vital Signs: 14:29 BP 116 / 74; Pulse 90; Resp 18 S; Temp 97.9(O); Pulse Ox 100% on R/A; Weight 80.74 kg aa5 (R); Height 5 ft. 0 in. (R); 15:45 BP 121 / 83; Pulse 92; Resp 19; Pulse Ox 96% on R/A; db 16:15 BP 125 / 75; Pulse 94; Resp 18; Pulse Ox 97% on R/A; db 14:29 Body Mass Index 34.76 (80.74 kg, 152.4 cm) aa5 MDM: 14:34 Patient medically screened. sp3 14:53 Data reviewed: vital signs, nurses notes, lab test result(s), radiologic studies. ED sp3 course: . 17:19 ED course: Blood sugar 400+ with no anion gap. Chest x-ray clean and swabs are sp3 negative. Patient still having cough. We will administer insulin 10 units IV and discharged with Z-Bello with follow-up to PCP to monitor sugars. I do not believe patient needs an adjustment of her diabetic regimen at this time until we resolve the probable viral URI.. 02/06 14:46 Order name: Glucose, Ancillary Testing; Complete Time: 14:46 EDMS 02/06 14:47 Order name: Glucose, Ancillary Testing EDMS 02/06 14:50 Order name: SARS RAPID sp3 02/06 16:21 Order name: SARS-COV-2 Antigen Rapid EDMS 02/06 16:21 Order name: Influenza Screen (A EDMS 02/06 16:36 Order name: Basic Metabolic Panel EDMS 02/06 16:36 Order name: Liver (Hepatic) Function EDMS 02/06 16:36 Order name: Troponin High Sensitivity EDMS 02/06 16:36 Order name: NT PRO-BNP EDMS 02/06 16:36 Order name: Magnesium EDMS 02/06 16:36 Order name: CBC with Automated Diff EDMS 02/06 16:42 Order name: CBC with Automated Diff; Complete Time: 17:02 EDMS 02/06 16:48 Order name: SARS-COV-2 Antigen Rapid; Complete Time: 17:02 EDMS 02/06 16:54 Order name: Influenza Screen (A ; Complete Time: 17:02 EDMS 02/06 17:04 Order name: Basic Metabolic Panel; Complete Time: 17:19 EDMS 02/06 17:04 Order name: Liver (Hepatic) Function; Complete Time: 17:19 EDMS 02/06 17:04 Order name: Troponin High Sensitivity; Complete Time: 17:19 EDMS 02/06 17:04 Order name: NT PRO-BNP; Complete Time: 17:19 EDMS 02/06 17:04 Order name: Magnesium; Complete Time: 17:19 EDMS 02/06 17:46 Order name: Glucose, Ancillary Testing EDMS 02/06 17:47 Order name: Glucose, Ancillary Testing EDMS 02/06 15:04 Order name: Chest Single View EDMS 02/06 15:44 Order name: RAD; Complete Time: 15:44 EDMS 02/06 14:35 Order name: EKG; Complete Time: 14:36 sp3 02/06 14:35 Order name: EKG - Nurse/Tech; Complete Time: 16:03 sp3 02/06 14:35 Order name: IV Saline Lock; Complete Time: 16:04 sp3 02/06 14:35 Order name: Labs collected and sent; Complete Time: 16:04 sp3 Administered Medications: 17:28 Drug: Insulin Regular Human IVP 10 units IVP once {Co-Signature: aa5 (Oxana Decker RN).} Route: IVP; Site: left antecubital; 18:05 Follow up: Response: No adverse reaction db Point of Care Testing: Blood Glucose: 14:34 Blood Glucose: 463 mg/dL; aa5 17:34 Blood Glucose: 428 mg/dL; db 17:59 Blood Glucose: 359 mg/dL; db Ranges: Critical Glucose Levels:Adult <50 mg/dl or >400 mg/dl <40 mg/dl or >180 mg/dl Disposition Summary: 02/07/24 17:21 Discharge Ordered Notes: Location: Home sp3 Condition: Stable sp3 Diagnosis - Hyperglycemia, upper respiratory infection sp3 Followup: sp3 - With: Private Physician - When: Upon discharge from the Emergency Department - Reason: Discharge Instructions: - Discharge Summary Sheet sp3 - Hyperglycemia sp3 - Upper Respiratory Infection, Adult sp3 Forms: - Medication Reconciliation Form sp3 - Antibiotic Education sp3 - Prescription Opioid Use sp3 - Patient Portal Instructions sp3 - Leadership Thank You Letter sp3 Prescriptions: - Zithromax Z-Bello 250 mg Oral Tablet - take 1 tablet ORAL route as directed for 5 days Day 1 - take two (2) tablets sp3 one time. Day 2, 3, 4 , 5 take one (1) tablet once daily.; 6 tablet; Refills: 0, Product Selection Permitted Signatures: Dispatcher [employer] Oxana Gold, JASWINDER RN aa5 Stewart Abbott MD MD sp3 Sena Singh RN RN db Oxana Decker RN aa5 Corrections: (The following items were deleted from the chart) 14:36 14:36 BASIC METABOLIC PANEL+C.LAB.BRZ ordered. EDMS EDMS 14:36 14:36 CBC+H.LAB.BRZ ordered. EDMS EDMS 14:36 14:36 HEPATIC FUNCTION+C.LAB.BRZ ordered. EDMS EDMS 14:36 14:36 MAGNESIUM+C.LAB.BRZ ordered. EDMS EDMS 14:36 14:36 PROBNP+C.LAB.BRZ ordered. EDMS EDMS 14:36 14:36 Troponin High Sensitivity+C.LAB.BRZ ordered. EDMS EDMS 14:50 14:50 Chest Single View+RAD.RAD.BRZ ordered. EDMS EDMS
[2024-02-08 14:51] VITALS: BP 125/75; TEMP 97.9; O2SAT 97
--- NOTE | 2024-02-10 14:46 | EKG ---
Test Date: 2024-02-07 Test Time: 15:20:08 Jack Spooler Tender: APOLONIA MEASUREMENT RESULTS: Intervals: Rate: 95 SC: 184 QRSD: 70 QT: 400 QTc: 502 [place]: P: 24 SC: 184 QRS: 21 T: 41 INTERPRETIVE STATEMENTS: Normal sinus rhythm Low voltage QRS Cannot rule out Anterior infarct, age undetermined Abnormal ECG Compared to ECG 11/05/2020 23:19:46 Low QRS voltage now present Myocardial infarct finding now present Electronically Signed On 02-10-24 14:39:57 CDT by Dami Oreilly
== END 2024-02-07 18:05 | disposition home or self-care (01) ==
LOC: ER 14:19
DX: E11.65 Type 2 diabetes mellitus with hyperglycemia (principal); J06.9 Acute upper respiratory infection, unspecified; Z11.52 Encounter for screening for COVID-19; Z88.0 Allergy status to penicillin; Z88.3 Allergy status to other anti-infective agents; Z88.5 Allergy status to narcotic agent
CPT/HCPCS: 36415; 71045; 80048; 80076; 82947; 83735; 83880; 84484; 85025; 87804; 87811; 93005; 96374; 99285

== ENCOUNTER 2024-08-30 19:48 | Inpatient (IN) | payer OTHER, SELFPAY ==
--- OUTSIDE RECORDS SUMMARY | 2024-08-30 19:51 | XMS REPORT | Continuity of Care Document ---
Author Name Unknown Address [address] 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 9 [id number] 2022 00:00:00 Allergies, Adverse Reactions, Alerts Allergy Name Allergy Type Status Severity Reaction(s) Onset Date Inactive Date Treating Clinician Comments Source Clindamy radha Drug Allergy Active Rash 01-14 00:00: 00 Jennifer Mendez - Externa l Penicill in G Propensi ty to adverse reaction s Active 01-14 00:00: 00 Jennifer Zambrano Externa l Tramadol Propensi ty to adverse reaction s Active Hallucinatio ns 01-14 00:00: 00 Jennifer Mendez - Externa l Social History Social Habit Start Date Stop Date Quantity Comments Source Gender identity Xiomara Mendez - External Sexual orientation Dulce Mendez - External History of Social function 2023-01-14 00:00:00 2023-01-14 00:00:00 Jennifer Mendez - External Sex Ass[birth year] At 1960 00:00:00 1960 00:00:00 Jennifer Mendez - External Smoking Status Start Date Stop Date Source Tobacco smoking consumption unknown Jennifer Seybold - External Medications Ordered Medication Name Filled Medication Name Start Date Stop Date Current Medication? Ordering Clinician Indication Dosage Frequency Signature (SIG) Comments Components Source Metformin HCl 1000 MG oral Tablet 01-14 10:04: 56 01-14 00:00 :00 No 1000mg Take 1 tablet (1,000 mg total) by mouth in the morning and 1 tablet (1,000 mg total) in the evening. Take with meals. Jennifer Mendez - Externa l Metformin HCl 1000 MG oral Tablet 01-14 00:00: 00 Yes [id number] 1000mg Take 1 tablet (1,000 mg total) by mouth in the morning and 1 tablet (1,000 mg total) in the evening. Take with meals. Jennifer Mendez - Jewelsa william Fluconazole 150 MG oral Tablet 01-14 00:00: 00 Yes [id number] 150mg Take 1 tablet (150 mg total) by mouth every 72 hours Jennifer Mendez - Jewelsa william Vital Signs Vital Name Observation Time Observation Value Comments S ource Systolic blood pressure 2023-01-14 14:27:00 120 mm[Hg] Jenniferluz Gonzalezo ld - External Diastolic blood pressure 2023-01-14 14:27:00 74 mm[Hg] Jennifer adamo ld - External Heart rate 2023-01-14 14:27:00 80 /min Roque y ybalecia - External Body temperature 2023-01-14 14:27:00 36.17 Stacia Jenniferluz Mendez - External Respiratory rate 2023-01-14 14:27:00 16 /min Jennifer Seybold - External Body height 2023-01-14 14:27:00 152.4 cm Xiomara goldberg Seybold - External Body weight 2023-01-14 14:27:00 80.74 kg Xiomara ey Seybold - External BMI 2023-01-14 14:27:00 34.76 kg/m2 Xiomara ey ybold - External Oxygen saturation in Arterial blood by Pulse oximetry 2023-01-14 14:27:00 96 /min Jennifer Sedeshaun ld - External Encounters Start Date/Time End Date/Time Encounter Type Admission Type Attending [facility] Care Department Encounter ID Source 2023-02-11 10:30:00 2023-02-11 10:30:00 Outpatient MARY ELLENWilliamBESSIE [facility]ENNIFER [facility] [id number] [facility] 11:30:00 2023-01-22 11:30:00 Outpatient MELIA QUIROS [id number] [facility] 2023-01-17 00:00:00 2023-01-17 00:00:00 Outpatient MELIA QUIROS [id number] [facility] 2023-01-17 00:00:00 2023-01-17 00:00:00 Outpatient OTTO ABDALLA [id number] Jennifer [facility] 2023-01-14 10:20:00 2023-01-14 10:20:00 Outpatient SENAIT JENNIFER SHAFER [id number] Jennifer [facility] 2023-01-14 09:30:00 2023-01-14 09:30:00 Outpatient MELIA QUIROS [id number] Jennifer [facility] 2022-12-31 15:30:00 2022-12-31 15:30:00 Outpatient MELIA QUIROS [id number] Jennifer [facility] 2022-09-05 08:58:16 2022-09-05 08:58:16 Outpatient [facility] [id number]
[2024-08-30] MEDS ORDERED: ONDANSETRON 4 MG (ODT) TAB ONE (20:50)
[2024-08-30] MEDS ORDERED: ALBUTEROL 2.5 MG/3 ML NEB SOL ONE (20:50)
[2024-08-30] MEDS ORDERED: IPRATROPIUM BROM 0.5MG/2.5ML ONE (20:50)
[2024-08-30 20:58] LABS: Absolute Lymphocytes (CBC) 1.5 K/uL (0.7-4.9); Absolute Monocytes 0.8 K/uL (0.1-1.3); Absolute Neutrophil 9.2 K/uL (1.8-8.0); Basophils % 0.2 % (0-1.3); Eosinophils % 0.2 % (0-4.4); Hematocrit 43.7 % (36.0-45.0); Hemoglobin 14.9 g/dL (12.0-15.0); Lymphocytes % 12.9 % (15.3-44.8); MCH 29.2 pg (27.0-35.0); MCV 85.7 fL (80-100); MPV 8.8 fL (7.6-11.3); Monocytes % 6.8 % (3.3-12.3); Neutrophils % 79.9 % (41.7-73.7); Platelets 178 thou/uL (152-406); Red Cell Distribution Width 13.1 % (12.1-15.2)
--- NOTE | 2024-08-30 21:04 | RAD REPORT ---
EXAMINATION: ONE VIEW CHEST XR CLINICAL INDICATION: COUGH TECHNIQUE: Frontal chest projection is submitted. Examination is limited by patient positioning and t echnique. COMPARISON: 02/07/2024 FINDINGS: Mild bilateral reticular opacities could indicate viral infection or chronic bronchitis. The heart is normal in size. No displaced fractures identified.
[2024-08-30 21:17] LABS: ALT/SGPT 39 U/L (13-56); AST/SGOT 43 U/L (15-37); Albumin 2.6 g/dL (3.4-5.0); Albumin/Globulin Ratio 0.5 (1.1-1.8); Alkaline Phosphatase 116 U/L (45-117); Anion Gap 14.6 mEq/L (5.0-15.0); BUN Blood Urea Nitrogen 14 mg/dL (7-18); Bicarbonate 24 mEq/L (21-32); Bilirubin Direct 0.4 mg/dL (0-0.2); Bilirubin Indirect, Calculated 0.4 mg/dL (0.2-0.8); Bilirubin Total 0.8 mg/dL (0.2-1.0); Globulin 5.7 g/dL (2.3-3.5); Glomerular Filtration Rate 81 ml/min (=/>90); Glucose Level 268 mg/dL (74-106); NT PRO-BNP 27 pg/mL (<125); Potassium 3.6 mEq/L (3.5-5.1); Protein, Total 8.3 g/dL (6.4-8.2); Sodium Level 128 mEq/L (136-145); Troponin High Sensitivity < 3.0 pg/mL (<58.9)
[2024-08-30] MEDS ORDERED: ONDANSETRON 4 MG/2 ML VIAL IV PRN (23:38)
[2024-08-30] MEDS ORDERED: ALBUTEROL 2.5 MG/3 ML NEB SOL NEB PRN (23:38)
[2024-08-30] MEDS ORDERED: IPRATROPIUM BROM 0.5MG/2.5ML NEB PRN (23:38)
[2024-08-30] MEDS ORDERED: ACETAMINOPHEN 500 MG TAB PO PRN (23:38)
--- NOTE | 2024-08-30 23:40 | ER ---
Nurse's Notes [facility] Name: Milana Gibson Age: 63 yrs Sex: Female : 1960 Arrival Date: 08/30/2024 Time: 19:48 Bed 16 Private MD: Diagnosis: Acute bronchiolitis, unspecified;Hypoxemia Presentation: 08/30 20:13 Chief complaint: Patient states: COUGH, CONGESTION AND CHEST PAIN THAT IS WORSE WITH cm10 COUGH ONSET 2 WEEKS AGO. Coronavirus screen: Client denies travel out of the [place] in the last 14 days. Ebola Screen: Patient denies travel to an Ebola-affected area in the 21 days before illness onset. No symptoms or risks identified at this time. Initial Sepsis Screen: Does the patient meet any 2 criteria? HR > 90 bpm. Does the patient have a suspected source of infection? No. Patient's initial sepsis screen is negative. Risk Assessment: Do you want to hurt yourself or someone else? Patient reports no desire to harm self or others. Onset of symptoms was August 30, 2024. 20:13 Method Of Arrival: Wheelchair cm10 20:13 Acuity: LORNA 3 cm10 Triage Assessment: 20:14 General: Appears in no apparent distress. uncomfortable, Behavior is calm, cooperative. cm10 Neuro: No deficits noted. Level of Consciousness is awake, alert, Oriented to person, place, time, situation. Respiratory: No deficits noted. Airway is patent Respiratory effort is even, unlabored, Respiratory pattern is regular, symmetrical. Historical: - Allergies: 20:12 Clindamycin; cm10 20:12 PENICILLINS; cm10 20:12 tramadol; cm10 20:12 Keflex; cm10 - PMHx: 20:12 Depression; Diabetes - NIDDM; cm10 - PSHx: 20:12 section; Cholecystectomy; Tonsillectomy; tubal ligation; cm10 - Immunization history:: Adult Immunizations up to date. - Infectious Disease History:: Denies. - Social history:: Smoking status: Patient denies any tobacco usage or history of. - Family history:: not pertinent. Screenin:20 [facility] ED Fall Risk Assessment (Adult) History of falling in the last 3 months, ay including since admission No falls in past 3 months (0 pts) Confusion or Disorientation No (0 pts) Intoxicated or Sedated No (0 pts) Impaired Gait No (0 pts) Mobility Assist Device Used No (0 pt) Altered Elimination No (0 pt) Score/Fall Risk Level 0 - 2 = Low Risk Oriented to surroundings, Maintained a safe environment, Educated pt \T\ family on fall prevention, incl call for assistance when getting out of bed, Assessed \T\ reinforced patient's understanding of fall precautions, Provided non-skid footwear, Hourly rounding (assess needs \T\ fall precautionary measures) done. Abuse screen: Denies threats or abuse. Nutritional screening: No deficits noted. Tuberculosis screening: No symptoms or risk factors identified. Assessment: 21:06 General: Appears uncomfortable, obese, Behavior is calm, cooperative. Pain: Denies ay pain. Neuro: Level of Consciousness is awake, alert, obeys commands, Oriented to person, place, time, situation, Vba Programmer are equal bilaterally. Cardiovascular: Heart tones S1 S2 Capillary refill < 3 seconds. Respiratory: Airway is patent Respiratory pattern is regular, Breath sounds are clear Breath sounds with crackles bilaterally. GI: No deficits noted. Abd is soft and non tender X 4 quads. : No deficits noted. EENT: No deficits noted. Derm: No deficits noted. Musculoskeletal: No deficits noted. 08/31 00:37 Pain:. Pain: Denies pain. ay 00:38 Pain: Pain began. ay 00:39 Pain: ay Vital Signs: 08/30 20:13 BP 97 / 67; Pulse 106; Resp 19; Temp 98(O); Pulse Ox 94% on R/A; Weight 75.3 kg; Height cm10 5 ft. 0 in. ; Pain 8/10; 22:00 BP 110 / 62; Pulse 121; Resp 20; Pulse Ox 96% on 2 lpm NC; ay 23:00 BP 135 / 76; Pulse 116; Resp 20; Pulse Ox 96% on 5 lpm NC; ay 23:50 BP 118 / 63; Pulse 109; Resp 18; Pulse Ox 97% on R/A; ay 20:13 Body Mass Index 32.42 (75.30 kg, 152.4 cm) cm10 20:13 Pain Scale: Adult cm10 Latasha Coma Score: 21:20 Eye Response: spontaneous(4). Motor Response: obeys commands(6). Verbal Response: ay oriented(5). Total: 15. ED Course: 19:52 Patient arrived in ED. gm2 19:53 Manuel Cheney MD is Attending Physician. rt 20:14 Triage completed. cm10 20:14 Arm band placed on left wrist. Patient placed in waiting room. EKG completed in triage. cm10 Results shown to MD. 20:15 EKG done, by ED staff, reviewed by Manuel Cheney MD. cm10 20:36 Rafi Iqbal, RN is Primary Nurse. bm8 20:51 Inserted saline lock: 20 gauge in right antecubital area, using aseptic technique. vk Blood collected. Flushed with 10 mL NS. 20:51 Initial lab(s) drawn, by me, sent to lab. vk 20:54 XRAY Chest (1 view) In Process Unspecified. EDMS 21:06 Primary Nurse role handed off by Rafi Iqbal, RN ay 21:06 Wilberto Regalado RN is Primary Nurse. ay 21:20 Patient has correct armband on for positive identification. Allergy band placed. Bed in ay low position. Call light in reach. Side rails up X2. 21:20 Client placed on continuous cardiac and pulse oximetry monitoring. NIBP monitoring ay applied. Door closed. Noise minimized. Warm blanket given. Pillow given. 21:20 Initial Neb Treatment Given as ordered. Oxygen administration via nasal cannula \T\ ay 2L/min. 23:39 Prince Ramirez MD is Hospitalizing Provider. rt 08/31 00:08 Provided Education on: Procedure Consent. ay 00:08 No provider procedures requiring assistance completed. ay 00:37 Patient admitted, IV remains in place. ay Administered Medications: 08/30 21:02 Drug: DuoNeb Nebulize (3:1) (2.5 mg - 0.5 mg) 3 ml Nebulizer once Route: Nebulizer; bm8 22:22 Follow up: Response: No adverse reaction ay 21: Drug: Ondansetron Oral Disintegrating Tablet Oral Disintegrating Tablet 4 mg PO once bm8 Route: PO; 22:22 Follow up: Response: No adverse reaction ay 08/31 00:01 Drug: MethylPrednisoLONE IVP 125 mg IVP once Route: IVP; Site: right antecubital; ay 00:10 Follow up: Response: No adverse reaction ay Medication: 08/30 21:20 VIS not applicable for this client. ay Outcome: 23:39 Decision to Hospitalize by Provider. rt 08/31 00:34 Admitted to Med/surg accompanied by nurse, room 402, with oxygen, with chart, ay Condition: stable Instructed on the need for admit, 01:29 Patient left the ED. ay Signatures: Dispatcher [employer] EDMS Manuel Cheney MD MD rt Naomi Krishnamurthy RN RN Candis Miller 2 Vianey Bazzi Brad, RN RN bm8 Wilberto Regalado, RN RN ay
--- NOTE | 2024-08-30 23:40 | EDPHYS ---
Physician Documentation [facility] Name: Milana Gibson Age: 63 yrs Sex: Female : 1960 Arrival Date: 08/30/2024 Time: 19:48 Bed 16 Private MD: ED Physician Manuel Cheney HPI: 08/30 20:13 This 63 yrs old Female presents to ER via Unassigned with complaints of Cough, rt Chest Congestion, Chest Tightness. 20:13 Patient presents to the ED with cough, chest pain with cough, difficulty breathing as rt well as diarrhea for the past 2 weeks. States that the Imodium is improved with Imodium. Reports nausea vomiting. Denies other acute complaints at this time, symptoms are moderate in severity, no other aggravating or elevating factors.. Historical: - Allergies: 20:12 Clindamycin; cm10 20:12 PENICILLINS; cm10 20:12 tramadol; cm10 20:12 Keflex; cm10 - PMHx: 20:12 Depression; Diabetes - NIDDM; cm10 - PSHx: 20:12 section; Cholecystectomy; Tonsillectomy; tubal ligation; cm10 - Immunization history:: Adult Immunizations up to date. - Infectious Disease History:: Denies. - Social history:: Smoking status: Patient denies any tobacco usage or history of. - Family history:: not pertinent. ROS: 20:13 Constitutional: Negative for fever, chills, and weight loss, MS/Extremity: Negative for rt injury and deformity, Skin: Negative for injury, rash, and discoloration, 20:13 Cardiovascular: Positive for chest pain, Negative for edema, 20:13 Respiratory: Positive for cough, shortness of breath, 20:13 Abdomen/GI: Positive for nausea, diarrhea, Exam: 20:13 Constitutional: This is a well developed, well nourished patient who is awake, alert, rt and in no acute distress. Head/Face: Normocephalic, atraumatic. Chest/axilla: Normal chest wall appearance and motion. Nontender with no deformity. No lesions are appreciated. Cardiovascular: Regular rate and rhythm with a normal S1 and S2. No gallops, murmurs, or rubs. Normal PMI, no JVD. No pulse deficits. Abdomen/GI: Soft, non-tender, with normal bowel sounds. No distension or tympany. No guarding or rebound. No evidence of tenderness throughout. Skin: Warm, dry with normal turgor. Normal color with no rashes, no lesions, and no evidence of cellulitis. MS/ Extremity: Pulses equal, no cyanosis. Neurovascular intact. Full, normal range of motion. Neuro: Awake and alert, GCS 15, oriented to person, place, time, and situation. Cranial nerves II-XII grossly intact. Motor strength 5/5 in all extremities. Sensory grossly intact. Cerebellar exam normal. Normal gait. 20:13 Respiratory: Wheezes heard on all lung partida, no respiratory distress, 20:36 ECG was reviewed by the Attending Physician. rt Vital Signs: 20:13 BP 97 / 67; Pulse 106; Resp 19; Temp 98(O); Pulse Ox 94% on R/A; Weight 75.3 kg; Height cm10 5 ft. 0 in. ; Pain 8/10; 22:00 BP 110 / 62; Pulse 121; Resp 20; Pulse Ox 96% on 2 lpm NC; ay 23:00 BP 135 / 76; Pulse 116; Resp 20; Pulse Ox 96% on 5 lpm NC; ay 23:50 BP 118 / 63; Pulse 109; Resp 18; Pulse Ox 97% on R/A; ay 20:13 Body Mass Index 32.42 (75.30 kg, 152.4 cm) cm10 20:13 Pain Scale: Adult cm10 Latasha Coma Score: 21:20 Eye Response: spontaneous(4). Motor Response: obeys commands(6). Verbal Response: ay oriented(5). Total: 15. MDM: 20:03 Medical Screening Exam initiated rt 08/31 02:59 Differential Diagnosis: Other Bronchospasm, pneumonia, hypoxia, CHF. Data reviewed: rt vital signs, nurses notes, lab test result(s), EKG, radiologic studies. Consideration of Admission/Observation Patient was admitted/placed on observation. Management of patient was discussed with the following: Hospitalist: Agrees to admit. I considered the following discharge prescriptions or medication management in the emergency department Medications were administered in the Emergency Department. See MAR. Independent interpretation of the following test(s) in the Emergency Department X-Ray: My interpretation is No infiltrate seen on interpretation of x-ray images. Test considered but Not performed: CT: Low suspicion for pulmonary embolus, CT angiogram not indicated. Care significantly affected by the following chronic conditions: Diabetes. Counseling: I had a detailed discussion with the patient and/or guardian regarding the historical points, exam findings, and any diagnostic results supporting the discharge/admit diagnosis, lab results, radiology results, the need for further work-up and treatment in the hospital. Response to treatment: the patient's symptoms have mildly improved after treatment. 08/30 20:08 Order name: Basic Metabolic Panel; Complete Time: 21:18 rt 08/30 20:08 Order name: CBC with Diff; Complete Time: 21:17 rt 08/30 20:08 Order name: LFT's; Complete Time: 21:18 rt 08/30 20:08 Order name: NT PRO-BNP; Complete Time: 21:18 rt 08/30 20:08 Order name: Troponin HS; Complete Time: 21:18 rt 08/30 23:43 Order name: Magnesium EDIN 08/30 23:43 Order name: Phosphorus EDIN 08/30 23:43 Order name: Urinalysis w/ reflexes EDIN 08/30 23:43 Order name: Basic Metabolic Panel EDIN 08/30 23:43 Order name: Basic Metabolic Panel EDIN 08/30 23:43 Order name: CBC with Automated Diff EDMS 08/30 23:43 Order name: CBC with Automated Diff EDMS 08/30 23:43 Order name: NT PRO-BNP EDIN 08/30 23:43 Order name: NT PRO-BNP EDIN 08/30 23:43 Order name: Troponin High Sensitivity EDIN 08/31 00:03 Order name: D-Dimer EDIN 08/30 20:08 Order name: XRAY Chest (1 view); Complete Time: 21:17 rt 08/30 23:44 Order name: Echo with Doppler EDIN 08/30 23:43 Order name: CONS Physician Consult EDIN 08/30 20:08 Order name: Cardiac monitoring; Complete Time: 20:36 rt 08/30 20:08 Order name: EKG - Nurse/Tech; Complete Time: 20:15 rt 08/30 20:08 Order name: IV Saline Lock; Complete Time: 20:36 rt 08/30 20:08 Order name: Labs collected and sent; Complete Time: 20:37 rt 08/30 20:08 Order name: O2 Per Protocol; Complete Time: 20:37 rt 08/30 20:08 Order name: O2 Sat Monitoring; Complete Time: 20:37 rt EC/24 20:36 Rate is 108 beats/min. Rhythm is regular, Sinus tachycardia with No ectopy. QRS [place] is rt Normal. [place] interval is normal. QRS interval is normal. QT interval is normal. No Q waves. T waves are Normal. No ST changes noted. Interpreted by me. Administered Medications: 21:02 Drug: DuoNeb Nebulize (3:1) (2.5 mg - 0.5 mg) 3 ml Nebulizer once Route: Nebulizer; bm8 22:22 Follow up: Response: No adverse reaction ay 21:02 Drug: Ondansetron Oral Disintegrating Tablet Oral Disintegrating Tablet 4 mg PO once bm8 Route: PO; 22:22 Follow up: Response: No adverse reaction ay 08/31 00:01 Drug: MethylPrednisoLONE IVP 125 mg IVP once Route: IVP; Site: right antecubital; ay 00:10 Follow up: Response: No adverse reaction ay Disposition Summary: 08/30/24 23:39 Hospitalization Ordered Notes: Hospitalization Status: Observation rt Provider: Prince James rt Location: Telemetry/MedSurg (observation) rt Condition: Stable rt Problem: new rt Symptoms: have improved rt Bed/Room Type: Standard rt Room Assignment: 402(08/31/24 00:06) rv1 Diagnosis - Acute bronchiolitis, unspecified rt - Hypoxemia rt Discharge Instructions: - Discharge Summary Sheet ay Forms: - Medication Reconciliation Form rt - Leadership Thank You Letter rt - SBAR form ay Signatures: Dispatcher [employer] EDMS Manuel Cheney MD MD rt Shey Irizarry rv1 Naomi Krishnamurthy, RN RN cm10 Rafi Iqbal, RN RN bm8 Wilberto Regalado, RN RN ay Corrections: (The following items were deleted from the chart) 08/30 20:09 20:09 BASIC METABOLIC PANEL+C.LAB.BRZ ordered. EDMS EDMS 20:09 20:09 CBC+H.LAB.BRZ ordered. EDMS EDMS 20:09 20:09 HEPATIC FUNCTION+C.LAB.BRZ ordered. EDMS EDMS 20:09 20:09 PROBNP+C.LAB.BRZ ordered. EDMS EDMS 20:09 20:09 Troponin High Sensitivity+C.LAB.BRZ ordered. EDMS EDMS 20:09 Chest Single View+RAD.RAD.BRZ ordered. EDMS EDMS 08/31 00:06 08/30 23:39 rt rv1
[2024-08-30] MEDS ORDERED: GLUCAGON 1 MG/VIAL IM PRN (23:42)
[2024-08-30] MEDS ORDERED: D10W 125 ML IV PRN (23:42)
[2024-08-30] MEDS: DULERA 200/5 (MOMETASONE/FORMOTEROL) INHALER IH SCH (23:58)
--- NOTE | 2024-08-30 23:59 | P.HP ---
Certification for Inpatient Patient admitted to: Inpatient With expected LOS: >2 Midnights Practitioner: I am a practitioner with admitting privileges, knowledge of patient current condition, hospital course, and medical plan of care. Services: Services provided to patient in accordance with Admission requirements found in Title 42 Section 412.3 of the Code of Federal Regulations Patient History Date of Service: 08/31/24 History of Present Illness: Patient is a 63-year-old female with a past medical history of insulin- dependent diabetes mellitus and hypertension. She presented to the ER c omplaining of progressively worsening shortness of breath. Her symptoms have been ongoing for the past 2 weeks and are associated with a productive cough with greenish sputum. Patient denies fever or chills. She denies lower extremity edema. She has a remote history of tobacco smoking in her younger days. Patient was found to have a bronchospasm in the ER and she was hypoxic in the 80s. She failed bronchodilators. She is now on supplemental oxygen via nasal cannula. Her chest x-ray is negative for pneumonia or CHF. Allergies clindamycin Allergy (Verified 11/06/20 07:40) Itching/Hives/Rash Penicillins Allergy (Verified 11/07/16 21:55) "pass out" tramadol Adverse Reaction (Verified 11/06/20 07:40) Hives/Rash Home Medications: Insulin -Regular Human [Novolin -R*] 18 unit SQ BID 11/06/16 Metformin ER [Glucophage ER*] 1,000 mg PO DAILY 11/06/16 lisinopriL [Lisinopril] 10 mg PO DAILY 11/06/16 Insulin Glargine Human [Lantus*] 20 units SQ BEDTIME #10 ml 11/08/16 Magnesium Oxide [Mag 0X*] 400 mg PO BID #60 tab 11/08/16 Aspirin [Aspirin EC 81 MG] 81 mg PO DAILY #90 tablet. 11/07/20 Famotidine [Pepcid] 20 mg PO BID #60 tab 11/07/20 Fluticasone [Flonase 50mcg Nasal Freedom] 1 sprays NS DAILY #1 btl 11/07/20 - Past Medical/Surgical History Diabetic: Yes -: IDDM -: Cholecystectomy; -: Tonsillectomy -: Tubal ligation -: - Social History Alcohol use: No CD- Drugs: No Caffeine use: No Physical Examination - Physical Exam General: Acute distress HEENT: Atraumatic, Normocephalic Respiratory: Other (No wheezing or crackles heard) Cardiovascular: No edema, Normal pulses, Regular rate/rhythm, Normal S1 S2 Musculoskeletal: No clubbing, No swelling, No contractures, No erythema, No tenderness, No warmth Neurological: Normal speech - Studies Laboratory Data (last 24 hrs) 08/30/24 08/30/24 20:50 20:50 WBC 11.40 H Hgb 14.9 Hct 43.7 Plt Count 178 Sodium 128 L Potassium 3.6 BUN 14 Creatinine 0.82 Glucose 268 H Total Bilirubin 0.8 AST 43 H ALT 39 Alkaline Phosphatase 116 Assessment and Plan - Problems (Diagnosis) (1) COPD exacerbation Current Visit: Yes Status: Acute (2) Hypertension Current Visit: Yes Status: Acute (3) Bronchitis Current Visit: No Status: Acute (4) Diabetes Current Visit: No Status: Acute - Plan Assessment This is a 63-year-old female with a remote history of tobacco smoking, type 2 diabetes mellitus and hypertension. She is being admitted for possible COPD exacerbation after she presented with 2-week history of shortness of breath and productive cough. Chest x-ray with mild bilateral reticular opacities suggestive of viral infection versus chronic bronchitis Acute hypoxemic respiratory failure Suspected COPD exacerbation Type 2 diabetes mellitus Hypertension Plan: Will admit inpatient Start patient on Solu-Medrol, DuoNebs and scheduled antibiotics Will also add Dulera to optimize COPD regimen Follow sputum culture She will benefit from a pulmonary consult Resume home insulin regimen once medications are reconciled Will start patient on moderate intensity insulin sliding scale to avoid steroid- induced hyperglycemia Famotidine for GI prophylaxis - Advance Directives Does patient have a Living Will: No Does patient have a Durable POA for Healthcare: No
[2024-08-31] MEDS ORDERED: METHYLPREDNISOLONE 125 MG INJ ONE (00:01)
[2024-08-31] MEDS: METHYLPREDNISOLONE 40 MG INJ IV SCH (01:31)
[2024-08-31] MEDS: Levofloxacin 750mg IV 750 MG/150 ML BAG IV SCH (01:31)
[2024-08-31 02:12] VITALS: BMI 29.7
[2024-08-31] MEDS: INSULIN GLARGINE 100 UNIT/ML SQ SCH ×2 (02:18→20:33)
[2024-08-31 06:01] LABS: Specific Gravity 1.011 (1.005-1.030); Sqamous Epithelial <5 /HPF (None Seen); Urine Bacteria None Seen /HPF (<20); Urine Bilirubin NEGATIVE (Negative); Urine Blood Trace (Negative); Urine Clarity Turbid (Clear); Urine Color Light-Yellow (Yellow); Urine Culture Reflex Order NOT NEEDED; Urine Glucose 4+ (Over) (Negative); Urine Ketones 1+ (Negative); Urine Microscopic Reflex YN ORDER UMIC; Urine Mucus Slight /HPF (None Seen); Urine Nitrite NEGATIVE (Negative); Urine Protein 1+ (Negative); Urine RBC <5 /HPF (None Seen); Urine Urobilinogen Normal (Normal); Urine WBC <5 /HPF (<5); Urine pH 5.5 (5.0-7.0)
[2024-08-31 06:25] LABS: Absolute Lymphocytes (CBC) 0.6 K/uL (0.7-4.9); Absolute Monocytes 0.2 K/uL (0.1-1.3); Absolute Neutrophil 8.6 K/uL (1.8-8.0); Basophils % 0.1 % (0-1.3); Hematocrit 40.8 % (36.0-45.0); Hemoglobin 13.9 g/dL (12.0-15.0); Lymphocytes % 6.4 % (15.3-44.8); MCH 29.2 pg (27.0-35.0); MCHC 34.2 g/dL (32.0-36.0); MCV 85.6 fL (80-100); Monocytes % 1.7 % (3.3-12.3); Neutrophils % 91.8 % (41.7-73.7); Nucleated Red Blood Cells % 0.1 % (0-0); Platelets 161 thou/uL (152-406); RBC Red Blood Cell Count 4.76 M/uL (3.86-4.86); Red Cell Distribution Width 12.4 % (12.1-15.2)
[2024-08-31 06:57] LABS: Anion Gap 15.9 mEq/L (5.0-15.0); Magnesium 1.6 mg/dL (1.6-2.4); Phosphorus 3.8 mg/dL (2.5-4.9); Potassium 3.9 mEq/L (3.5-5.1)
[2024-08-31] MEDS: INSULIN REGULAR (HUMAN) 100 UNIT/ML SQ SCH ×3 (07:42→14:13)
--- NOTE | 2024-08-31 07:42 | P.PN ---
Date of Service: 08/31/24 Subjective: has been dealing with some SOB, productive cough for ~2-3 weeks +nausea/vomiting for few days prior to admission. She reports episodes were preceded by coughing fits hasn't been taking her insulin as prescribed last few days d/t feeling weak, rundown, hard time getting out of bed. afebrile ROS: 10 point ROS as noted above, otherwise negative Physical Exam: GEN: Alert, oriented, NAD HEENT: Normal conjunctiva, sclera anicteric, CV: Regular rate and rhythm, no edema Pulm: Nonlabored respirations on 2L NC, diminished at bases b/l, +productive cough ABD: soft, nontender, nondistended Neuro: Normal speech, normal affect Problem List: Acute hypoxic respiratory failure IDDM2 with hyperglycemia Pseudohyponatremia Hypertension Acute hypoxic respiratory failure on admission, presents with worsening shortness of breath for ~2 weeks associated with productive cough, green sputum. reports some nausea/vomiting for few days prior to admission. She reports episodes were preceded by coughing fits reportedly found to have bronchospasm in ED. Failed Bronchodilators Denies prior history of COPD. CXR (08/30): mild bilateral reticular opacities could indicate viral infection or chronic bronchitis. D-dimer elevated; will check CTA to r/o PE, further eval Echo ordered to eval EF / stenosis Start ceftin, azithromycin (08/31-) to cover possible infection given IV solu-medrol overnight; dc'd 08/31 Dr. Navarrete, Pulm consulted wean oxygen as tolerated Confirm home meds, restart as appropriate Duonebs IDDM2 with hyperglycemia steroid induced hyperglycemia reports some degree on noncompliance with her insulin regimen last few days d/t feeling weak, hard time getting up. prior to this she reports been taking meds regularly as scheduled Has had 1 episode of DKA in the past ~5 years ago. confirm home insulin regimen continue semglee, 30u BID; titrate as needed given IV solu-medrol overnight which will increase glc; dc'd 08/31 accu-cheks, SSI a1c 11.8 Pseudohyponatremia secondary to hyperglycemia Monitor and replete electrolytes as needed Daily labs Hypertension confirm home meds, restart as appropriate VTE: Lovenox Code: Full Dispo: Home, ~2 days Time Spent Managing Pts Care (In Minutes): 55
[2024-08-31] MEDS ORDERED: MAGNESIUM SULFATE 1 gm IVPB 1 GM/100 ML BAG IV ONE (08:00)
[2024-08-31 08:22] LABS: Blood Morphology Comment NOT SEEN (NOT SEEN); Platelet Estimate ADEQ; White Blood Cell Scan OK (OK)
[2024-08-31] MEDS: FAMOTIDINE 20 MG/2 ML VIAL IV SCH (09:47)
[2024-08-31] MEDS: ENOXAPARIN 40 MG/0.4 ML SQ SCH (09:48)
[2024-08-31] MEDS: POTASSIUM CL SA 10 MEQ TAB PO ONE (09:48)
[2024-08-31] MEDS: AZITHROMYCIN 250 MG TAB PO SCH (09:48)
[2024-08-31] MEDS: ASPIRIN EC 81 MG TAB PO SCH (09:48)
[2024-08-31] MEDS: CEFUROXIME 250 MG TAB PO SCH (09:48)
[2024-08-31] MEDS: Magnesium Sulfate 2gm IVPB 2 G/50 ML BAG IV ONE (09:49)
--- NOTE | 2024-08-31 10:06 | RAD REPORT ---
EXAMINATION: CTA CHEST PE CLINICAL INDICATION: Chest pain TECHNIQUE: 100 cc 370 Isovue administered intravenously. This examination was performed according to an angiographic protocol with 3D post-processing. This involves 3D reconstructions, MIPs, volume rendered images and/or shaded surface rendering. One or more of the following dose reduction techniqu es were used: Automated exposure control, adjustment of the mA and/or kV according to patient size, and/or iterative reconstruction. Unless otherwise specified, incidental findings do not require dedic ated imaging follow-up. [id number]. COMPARISON: 2020 FINDINGS: A pulmonary embolus is not seen. An aortic aneurysm not noted. No pleural effusion. No pericardial effusion. No worrisome lung nodule. IMPRESSION: No evidence of a pulmonary embolism
[2024-08-31] MEDS: INSULIN REGULAR (HUMAN) 100 UNIT/ML IV ONE (12:48)
--- NOTE | 2024-08-31 12:51 | P.CNS ---
Date of Consult: 08/31/24 Reason for Consult: Chest congestion hypoxemia Chief Complaint: Chest congestion shortness of breath History of Present Illness: Patient is 63 years of age no prior history of cardiopulmonary problems has been sick for about 2 weeks complaining of cough congestion chest discomfort shortness of breath has never smoked has had some vomiting and diarrhea about 4 days ago feeling a little better patient is a diabetic currently denies any fever chills hemoptysis or phlegm production Allergies clindamycin Allergy (Verified 11/06/20 07:40) Itching/Hives/Rash Penicillins Allergy (Verified 11/07/16 21:55) "pass out" tramadol Adverse Reaction (Verified 11/06/20 07:40) Hives/Rash Home Medications: Insulin -Regular Human [Novolin -R*] 30 unit SQ BID 11/06/16 Metformin ER [Glucophage ER*] 1,000 mg PO DAILY 11/06/16 Insulin Glargine Human [Lantus*] 30 units SQ BID 08/31/24 - Past Medical/Surgical History Diabetic: Yes -: IDDM -: Cholecystectomy; -: Tonsillectomy -: Tubal ligation -: - Social History Smoking Status: Unknown if ever smoked Alcohol use: No CD- Drugs: No Caffeine use: No Place of Residence: Home Review of Systems 10-point ROS is otherwise unremarkable General: Weakness Respiratory: Cough, Shortness of Breath Physical Examination Temp Pulse Resp BP Pulse Ox 98.2 F 93 H 16 119/72 96 08/31/24 12:00 08/31/24 12:00 08/31/24 12:00 08/31/24 12:00 08/31/24 12:00 General: Alert, Oriented x3 HEENT: Atraumatic Neck: Supple Respiratory: Clear to auscultation bilaterally Cardiovascular: No edema, Regular rate/rhythm, Normal S1 S2 Gastrointestinal: Normal bowel sounds Laboratory Data (last 24 hrs) 08/30/24 08/30/24 20:50 20:50 WBC 11.40 H Hgb 14.9 Hct 43.7 Plt Count 178 Sodium 128 L Potassium 3.6 BUN 14 Creatinine 0.82 Glucose 268 H Total Bilirubin 0.8 AST 43 H ALT 39 Alkaline Phosphatase 116 - Problems (1) Bronchiolitis Current Visit: Yes Status: Acute Plan: Patient has been sick for about 2 weeks she is 63 years of age history of diabetes mellitus chest x-ray is clear I suspect that she is on may have underlying viral bronchitis bronchiolitis labs are also unremarkable apart from elevated sugar due to steroid check room air pulse ox there is no evidence of thromboembolism chest x-ray is clear no evidence of pneumonia see steroids add azithromycin for anti-inflammatory purposes use an inhaled bronchodilator discharge tomorrow on azithromycin and cefuroxime Dulera for now avoid steroids
[2024-08-31 13:51] LABS: Anion Gap 13.8 mEq/L (5.0-15.0); Magnesium 2.4 mg/dL (1.6-2.4); Potassium 3.8 mEq/L (3.5-5.1)
[2024-09-01 06:16] LABS: Anion Gap 11.6 mEq/L (5.0-15.0); Potassium 3.6 mEq/L (3.5-5.1)
[2024-09-01] MEDS: POTASSIUM CL SA 10 MEQ TAB PO ONE (06:27)
[2024-09-01] MEDS: GUAIFENESIN/DM 5 ML UCUP PO PRN (11:07)
--- NOTE | 2024-09-01 11:32 | ECHO ---
HEIGHT: 5 ft 0 in WEIGHT: 152 lb 0 oz DATE OF STUDY: 09/01/[address]: Prince Misty Ramirez MD 2-DIMENSIONAL: YES M.MODE: YES DOPPLER: YES COLOR FLOW: YES TDS: NO PORTABLE: YES DEFINITY: NO BUBBLE STUDY: NO DIAGNOSIS: SHORTNESS OF BREATH CARDIAC HISTORY: CATHERIZATION: NO SURGERY: NO PROSTHETIC VALVE: NO PACEMAKER: NO MEASUREMENTS (cm) DIASTOLIC (NORMALS) SYSTOLIC (NORMALS) IVSd 0.9 (0.6-1.2) LA Diam 2.2 (1.9-4.0) LVEF 60-65% LVIDd 3.7 (3.5-5.7) LVIDs 2.5 (2.0-3.5) %FS 33% LVPWd 0.9 (0.6-1.2) Ao Diam 2.1 (2.0-3.7) 2 DIMENSIONAL ASSESSMENT: RIGHT ATRIUM: NORMAL LEFT ATRIUM: NORMAL RIGHT VENTRICLE: NORMAL LEFT VENTRICLE: NORMAL TRICUSPID VALVE: TRACE TRICUSPID REGURGITATION MITRAL VALVE: NORMAL PULMONIC VALVE: NORMAL AORTIC VALVE: NORMAL PERICARDIAL EFFUSION: NONE AORTIC ROOT: NORMAL LEFT VENTRICULAR WALL MOTION: NORMAL. DOPPLER/COLOR FLOW: NORMAL. COMMENTS: 1. NORMAL LEFT VENTRICULAR SYSTOLIC FUNCTION. LEFT VENTRICULAR EJECTION FRACTION 60-65%. NORMAL WALL MOTION. 2. NORMAL DIASTOLIC FUNCTION. 3. NORMAL FILLING PRESSURE. RIGHT ATRIAL PRESSURE 0-5 mmHg. TECHNOLOGIST: RAMANDEEP ENAMORADO
--- NOTE | 2024-09-01 15:07 | P.PN ---
Subjective Date of Service: 09/01/24 Chief Complaint: Chest congestion shortness of breath Patient states she feels slightly better compared to yesterday. She reports intermittent nonproductive coughing spells. No recorded fever. She is currently maintained on 2 L oxygen by nasal cannula. Physical Examination - Vital Signs Temperature: 97.8 F Blood Pressure: 105/58 Pulse: 80 Respirations: 16 Pulse Ox (%): 97 Assessment And Plan - Plan Physical Exam: GEN: Alert, oriented, NAD HEENT: Normal conjunctiva, sclera anicteric, CV: Regular rate and rhythm, no edema Pulm: diminished at bases b/l, mild scattered rhonchi. ABD: soft, nontender, nondistended Neuro: Normal speech, normal affect Problem List: Acute hypoxic respiratory failure with hypoxia Acute bronchitis IDDM2 with hyperglycemia Pseudohyponatremia Hypertension Acute hypoxic respiratory failure with hypoxia Acute bronchitis on admission, presents with worsening shortness of breath for ~2 weeks associated with productive cough, green sputum. reports some nausea/vomiting for few days prior to admission. She reports episodes were preceded by coughing fits reportedly found to have bronchospasm in ED. Patient denies prior history of COPD. CXR (08/30): mild bilateral reticular opacities could indicate viral infection or chronic bronchitis. D-dimer elevated; CTA thorax: No evidence of PE. Echo ordered to eval EF / stenosis Continue ceftin, azithromycin (08/31-) for acute infective bronchitis. Pulmonary Dr. Navarrete input appreciated wean oxygen as tolerated Duonebs IDDM2 with hyperglycemia steroid induced hyperglycemia Continue current dose Semglee insulin and insulin sliding scale. a1c 11.8 VTE: Lovenox Code: Full Dispo: Home, ~2 days
[2024-09-01] MEDS ORDERED: ALBUTEROL 2.5 MG/3 ML NEB SOL NEB PRN (16:27)
[2024-09-01] MEDS ORDERED: IPRATROPIUM BROM 0.5MG/2.5ML NEB PRN (16:28)
[2024-09-02 06:30] LABS: Anion Gap 9.2 mEq/L (5.0-15.0); Potassium 3.2 mEq/L (3.5-5.1)
[2024-09-02] MEDS: BUDESONIDE 0.5 MG/2 ML NEB NEB SCH (08:54)
--- NOTE | 2024-09-02 09:04 | P.DS ---
Admission Date: 08/30/24 Discharge Date: 09/02/24 Disposition: ROUTINE DISCHARGE Discharge Condition: FAIR Reason for Admission: Chest congestion shortness of breath Brief History of Present Illness: Patient is a 63-year-old female with a past medical history of insulin- dependent diabetes mellitus and hypertension who presented to the ER complaining of progressively worsening shortness of breath of 2 weeks duration, symptoms associated with cough productive of greenish sputum. Patient was found to have a bronchospasm in the ER and she was hypoxic in the 80s. She did not respond to bronchodilator treatment in the ED. Patient was needing supplemental oxygen. Her chest x-ray did not show any acute disease. Patient was hospitalized for further management. Hospital Course: Diagnosis Acute hypoxic respiratory failure with hypoxia Acute bronchitis IDDM2 with hyperglycemia Pseudohyponatremia Hypertension Patient admitted to the medical floor and the following medical problems addressed: Acute hypoxic respiratory failure with hypoxia Acute bronchitis Patient denies prior history of COPD. CXR (08/30): mild bilateral reticular opacities could indicate viral infection or chronic bronchitis. D-dimer elevated; CTA thorax: No evidence of PE. Echo: Unremarkable with normal EF Patient treated with oral ceftin, azithromycin (08/31-) for acute infective bronchitis. She was seen and evaluated pulmonary Dr. Navarrete and patient placed on bronchodilators Her respiratory status improved and she was weaned off oxygen to room air which she tolerated at rest and with ambulation with good oxygen saturation. IDDM2 with hyperglycemia steroid induced hyperglycemia Hba1c 11.8 Home insulin regimen resumed and compliance reemphasized. Vital Signs/Physical Exam: Temp Pulse Resp BP Pulse Ox 98.1 F 88 18 110/62 99 09/02/24 04:00 09/02/24 04:00 09/02/24 04:00 09/02/24 04:00 09/02/24 04:00 General: Alert, In no apparent distress, Oriented x3 HEENT: Mucous membr. moist/pink Neck: Supple, JVD not distended Respiratory: Clear to auscultation bilaterally, Normal air movement Cardiovascular: No edema, Regular rate/rhythm, Normal S1 S2 Gastrointestinal: Normal bowel sounds, Soft and benign, Non-distended, No tenderness Musculoskeletal: No swelling Integumentary: No rashes, No cyanosis Neurological: Normal speech, Normal strength at 5/5 x4 extr Laboratory Data at Discharge: WBC 9.30 thou/uL (4.3-10.9) 08/31/24 05:57 Hgb 13.9 g/dL (12.0-15.0) 08/31/24 05:57 Hct 40.8 % (36.0-45.0) 08/31/24 05:57 Plt Count 161 thou/uL (152-406) 08/31/24 05:57 Sodium 138 mEq/L (136-145) D 09/02/24 05:45 Potassium Cancelled 09/02/24 Unknown BUN 23 mg/dL (7-18) H 09/02/24 05:45 Creatinine 0.72 mg/dL (0.55-1.02) 09/02/24 05:45 Glucose 137 mg/dL (74-106) H 09/02/24 05:45 Phosphorus 3.8 mg/dL (2.5-4.9) 08/31/24 05:57 Magnesium 2.4 mg/dL (1.6-2.4) 08/31/24 13:24 Total Bilirubin 0.8 mg/dL (0.2-1.0) 08/30/24 20:50 AST 43 U/L (15-37) H 08/30/24 20:50 ALT 39 U/L (13-56) 08/30/24 20:50 Alkaline Phosphatase 116 U/L (45-117) 08/30/24 20:50 Home Medications: Insulin -Regular Human [Novolin -R*] 30 unit SQ BID 11/06/16 Metformin ER [Glucophage ER*] 1,000 mg PO DAILY 11/06/16 Insulin Glargine Human [Lantus*] 30 units SQ BID 08/31/24 Azithromycin Tab [Zithromax*] 500 mg PO DAILY #8 tab 09/02/24 Cefuroxime [Ceftin*] 500 mg PO BIDWM #8 tab 09/02/24 Mometasone/Formoterol [Dulera 200 Mcg/5 Mcg Inhaler] 2 puff IH BID #1 inhaler 09/02/24 Pantoprazole [Protonix Tab*] 40 mg PO BIDAC #60 tab 09/02/24 Promethazine/Dextrometh Syr [Phenergan Dm Oral Syrup*] 5 ml PO Q6H #30 osyr 09/02/24 New Medications: Cefuroxime [Ceftin*] 500 mg PO BIDWM #8 tab Mometasone/Formoterol [Dulera 200 Mcg/5 Mcg Inhaler] 2 puff IH BID #1 inhaler Promethazine/Dextrometh Syr [Phenergan Dm Oral Syrup*] 5 ml PO Q6H #30 osyr Pantoprazole [Protonix Tab*] 40 mg PO BIDAC #60 tab Azithromycin Tab [Zithromax*] 500 mg PO DAILY #8 tab Diet: ADA Activity: Fall precautions Followup: NONE,NONE [Primary Care Provider] - Time spent managing pt's care (in minutes): 33
[2024-09-02] MEDS: PROMETHAZINE-DM 5 ML OSYR PO SCH (09:24)
[2024-09-02 09:25] LABS: Hematocrit 39.5 % (36.0-45.0); Hemoglobin 13.4 g/dL (12.0-15.0); MCHC 33.8 g/dL (32.0-36.0); MCV 85.9 fL (80-100); MPV 9.1 fL (7.6-11.3); Platelets 237 thou/uL (152-406); Red Cell Distribution Width 12.7 % (12.1-15.2)
[2024-09-02] MEDS: POTASSIUM CL SA 10 MEQ TAB PO ONE (09:25)
--- NOTE | 2024-09-02 11:40 | EKG ---
Test Date: 2024-08-30 Test Time: 20:08:52 New Business Clerk: JULI MEASUREMENT RESULTS: Intervals: Rate: 108 SC: 120 QRSD: 72 QT: 334 QTc: 447 [place]: P: -14 SC: 120 QRS: -2 T: 23 INTERPRETIVE STATEMENTS: Sinus tachycardia Otherwise normal ECG Compared to ECG 02/07/2024 15:20:08 Sinus rhythm no longer present Myocardial infarct finding no longer present Electronically Signed On 09-02-24 11:34:55 ADMITTING COUNSELOR by Leander Wu
[2024-09-02 12:17] VITALS: BP 109/65; TEMP 98
[2024-09-02 12:27] VITALS: O2SAT 93
[2024-09-02] MEDS: IPRATROPIUM BROM 0.5MG/2.5ML NEB SCH (13:17)
--- NOTE | 2024-09-02 13:40 | P.PN ---
Subjective Date of Service: 09/02/24 Chief Complaint: Chronic cough He has been complaining of chronic persistent cough since admission no change with antibiotics or bronchodilators denies any fever or chills Review of Systems 10-point ROS is otherwise unremarkable General: Weakness Respiratory: Shortness of Breath Physical Examination - Vital Signs Temperature: 98 F Blood Pressure: 109/65 Pulse: 88 Respirations: 20 Pulse Ox (%): 93 - Physical Exam General: Alert, Oriented x3 Cardiovascular: No edema, Regular rate/rhythm, Normal S1 S2 Assessment And Plan - Current Problems (Diagnosis) (1) Bronchiolitis Current Visit: Yes Status: Acute Plan: Patient has a chronic persistent cough is treated with 2 antibiotics no response will add proton pump inhibitor scheduled bronchodilators signs stable oxygenation satisfactory schedule cough syrup
[2024-09-02] MEDS ORDERED: PANTOPRAZOLE 40MG TABLET PO SCH (16:30)
== END 2024-09-02 13:34 | disposition home or self-care (01) | DRG 189 ==
LOC: ER 19:48 → 4TH 23:38
PROVIDERS: ADMIT Internal Medicine; ATTEND Internal Medicine
DX: J96.01 Acute respiratory failure with hypoxia (principal); J20.9 Acute bronchitis, unspecified; I10 Essential (primary) hypertension; E11.65 Type 2 diabetes mellitus with hyperglycemia; T38.0X5A Adverse effect of glucocorticoids and synthetic analogues, initial encounter; T38.3X6A Underdosing of insulin and oral hypoglycemic [antidiabetic] drugs, initial encounter; Z88.0 Allergy status to penicillin; Z88.5 Allergy status to narcotic agent; Z88.1 Allergy status to other antibiotic agents; Z79.4 Long term (current) use of insulin; Z90.49 Acquired absence of other specified parts of digestive tract; Z79.82 Long term (current) use of aspirin; Z79.899 Other long term (current) drug therapy; Z91.148 Patient's other noncompliance with medication regimen for other reason
CPT/HCPCS: 36415; 71045; 71275; 80048; 80076; 81001; 82947; 83036; 83735; 83880; 84100; 84484; 85025; 85027; 85379; 93005; 93306; 94640; 94760; 96374; 99285; J1650; J2919; J3475; J3535; J7613; J7644; Q0162; Q9967

== ENCOUNTER 2024-09-18 04:33 | Emergency (ER) | payer OTHER ==
--- OUTSIDE RECORDS SUMMARY | 2024-09-18 04:35 | XMS REPORT | Continuity of Care Document ---
Author Name Unknown Address [address] 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 94 ON STAND 9 [id number] 2022 00:00:00 Allergies, Adverse Reactions, Alerts Allergy Name Allergy Type Status Severity Reaction(s) Onset Date Inactive Date Treating Clinician Comments Source Clindamy radha Drug Allergy Active Rash 01-14 00:00: 00 Jennifer Mendez - Externa l Penicill in G Propensi ty to adverse reaction s Active 01-14 00:00: 00 Jennifer Mendez - Externa l Tramadol Propensi ty to adverse [...] Date Source Tobacco smoking consumption unknown Jennifer Mendez - External Medications Ordered Medication Name Filled [...] MG oral Tablet 01-14 00:00: 00 Yes [id number] 1000mg Take 1 tablet (1,000 mg total) by mouth in the morning and 1 tablet (1,000 mg total) in the evening. Take with meals. Jennifer Donisa william Fluconazole 150 MG oral Tablet 01-14 00:00: 00 Yes [id number] 150mg Take 1 tablet (150 mg total) by mouth every 72 hours Jennifer Mendez - Jewelsa william Vital Signs Vital Name Observation Time Observation Value Comments S ource Systolic blood pressure 2023-01-14 14:27:00 120 mm[Hg] Jenniferluz Gonzalezo ld - External Diastolic blood pressure 2023-01-14 14:27:00 74 mm[Hg] Jennifer Gonzalezo ld - External Heart rate 2023-01-14 14:27:00 80 /min Roquese edwin Mendez - External Body temperature 2023-01-14 14:27:00 36.17 Stacia Jenniferluz Mendez - External Respiratory rate 2023-01-14 14:27:00 16 /min Jennifer ybold - External Body height 2023-01-14 14:27:00 152.4 cm Xiomara goldberg Seybold - External Body weight 2023-01-14 14:27:00 80.74 kg Xiomara ey Seybold - External BMI 2023-01-14 14:27:00 34.76 kg/m2 Xiomara ey ybold - External Oxygen saturation in Arterial blood by Pulse oximetry 2023-01-14 14:27:00 96 /min Jennifer deshaun ld - External Encounters Start Date/Time End Date/Time Encounter Type Admission Type Attending [facility] Facility Care Department Encounter ID Source 2023-02-11 10:30:00 2023-02-11 10:30:00 Outpatient MARY ELLENWilliamBESSIE JENNIFER SHAFER [id number] Jennifer [facility] 2023-01-22 11:30:00 2023-01-22 11:30:00 Outpatient MELIA QUIROS [id number] Jennifer [facility] 2023-01-17 00:00:00 2023-01-17 00:00:00 Outpatient MELIA QUIROS [id number] Jennifer [facility] 2023-01-17 00:00:00 2023-01-17 00:00:00 Outpatient OTTO ABDALLA [id number] Jennifer [facility] 2023-01-14 10:20:00 2023-01-14 10:20:00 Outpatient SENAIT JENNIFER SHAFER [id number] Jennifer [facility] 2023-01-14 09:30:00 2023-01-14 09:30:00 Outpatient MELIA QUIROS [id number] Jennifer [facility] 2022-12-31 15:30:00 2022-12-31 15:30:00 Outpatient MELIA QUIROS [id number] Jennifer [facility] 2022-09-05 08:58:16 2022-09-05 08:58:16 Outpatient [facility] [id number]
[2024-09-18 05:09] LABS: Absolute Basophils 0.1 K/uL (0-0.5); Absolute Eosinophils 0.1 K/uL (0-0.5); Absolute Lymphocytes (CBC) 1.9 K/uL (0.7-4.9); Absolute Monocytes 0.5 K/uL (0.1-1.3); Absolute Neutrophil 7.1 K/uL (1.8-8.0); Basophils % 0.8 % (0-1.3); Eosinophils % 1.3 % (0-4.4); Hematocrit 42.4 % (36.0-45.0); Hemoglobin 14.1 g/dL (12.0-15.0); Lymphocytes % 19.5 % (15.3-44.8); MCH 29.1 pg (27.0-35.0); MCHC 33.1 g/dL (32.0-36.0); MCV 87.9 fL (80-100); MPV 8.8 fL (7.6-11.3); Monocytes % 4.7 % (3.3-12.3); Neutrophils % 73.7 % (41.7-73.7); Nucleated Red Blood Cells % 0.1 % (0-0); Platelets 236 thou/uL (152-406); RBC Red Blood Cell Count 4.83 M/uL (3.86-4.86); Red Cell Distribution Width 13.8 % (12.1-15.2)
[2024-09-18] MEDS ORDERED: D5 0.9 NS 1,000 ML IV ONE (05:18)
[2024-09-18 05:31] LABS: ALT/SGPT 26 U/L (13-56); Albumin/Globulin Ratio 0.7 (1.1-1.8); Alkaline Phosphatase 75 U/L (45-117); Anion Gap 11.4 mEq/L (5.0-15.0); BUN Blood Urea Nitrogen 17 mg/dL (7-18); Bicarbonate 23 mEq/L (21-32); Bilirubin Total 0.4 mg/dL (0.2-1.0); Globulin 4.3 g/dL (2.3-3.5); Glomerular Filtration Rate 68 ml/min (=/>90); Glucose Level 97 mg/dL (74-106); Protein, Total 7.3 g/dL (6.4-8.2); Sodium Level 140 mEq/L (136-145)
[2024-09-18 05:32] LABS: AST/SGOT 22 U/L (15-37); Bilirubin Direct < 0.2 mg/dL (0-0.2); Bilirubin Indirect, Calculated 0.2 mg/dL (0.2-0.8); Potassium 3.4 mEq/L (3.5-5.1)
--- NOTE | 2024-09-18 07:21 | ER ---
Nurse's Notes [facility] Name: Milana Gibson Age: 63 yrs Sex: Female : 1960 Arrival Date: 09/18/2024 Time: 04:33 Bed 4 Private MD: Diagnosis: Adverse effect of insulin and oral hypoglycemic [antidiabetic] drugs;Drug-induced hypoglycemia without coma Presentation: 09/18 04:36 Chief complaint: EMS states: patient was laying in bed sleeping with great al5 granddaughter, great granddaughter noticed patient was cool and clammy. ems toned out, bgl was 24. d10 and oral glucose given, patient bgl came up to 220. Coronavirus screen: At this time, the client does not indicate any symptoms associated with coronavirus-19. Ebola Screen: No symptoms or risks identified at this time. 04:36 Method Of Arrival: EMS: [facility] al5 04:36 Initial Sepsis Screen: Does the patient meet any 2 criteria? No. Patient's initial al5 sepsis screen is negative. Does the patient have a suspected source of infection? No. Patient's initial sepsis screen is negative. Risk Assessment: Do you want to hurt yourself or someone else? Patient reports no desire to harm self or others. Onset of symptoms was September 18, 2024. Care prior to arrival: Medication(s) given: D10 and oral glucose IV initiated. 22 GA, in the left hand, Glucose check: 220 initial bgl was 24, after interventions came up to 220, then dropped to 175. 04:36 Acuity: LORNA 3 al5 Triage Assessment: 04:36 General: Appears in no apparent distress. comfortable, Behavior is calm, cooperative. al5 Pain: Denies pain. EENT: No signs and/or symptoms were reported regarding the EENT system. Neuro: Level of Consciousness is awake, alert, obeys commands, Oriented to person, place, time, situation. Cardiovascular: Capillary refill < 3 seconds Patient's skin is warm and dry. Respiratory: Airway is patent Respiratory effort is even, unlabored, Respiratory pattern is regular, symmetrical. GI: No signs and/or symptoms were reported involving the gastrointestinal system. : No signs and/or symptoms were reported regarding the genitourinary system. Derm: Skin is intact, is healthy with good turgor, Skin is pink, warm \T\ dry. normal. Musculoskeletal: No signs and/or symptoms reported regarding the musculoskeletal system. Historical: - Allergies: 04:36 Clindamycin; al5 04:36 Keflex; al5 04:36 PENICILLINS; al5 04:36 tramadol; al5 - Home Meds: 04:36 paroxetine HCl 10 mg Oral tab 1 tab once daily [Active]; metformin 1 Oral tab 1 tab 2 al5 times per day [Active]; fluconazole 200 mg Oral tab 1 tab once daily [Active]; aspirin 81 mg Oral TbEC 1 tab once daily [Active]; - PMHx: 04:36 Depression; Diabetes - NIDDM; al5 - PSHx: 04:36 section; Cholecystectomy; Tonsillectomy; tubal ligation; al5 - Immunization history:: Adult Immunizations up to date. - Infectious Disease History:: Denies. - Social history:: Smoking status: Patient denies any tobacco usage or history of. - Family history:: not pertinent. Screenin:[address] [facility] ED Fall Risk Assessment (Adult) History of falling in the last 3 months, al5 including since admission No falls in past 3 months (0 pts) Confusion or Disorientation No (0 pts) Intoxicated or Sedated No (0 pts) Impaired Gait No (0 pts) Mobility Assist Device Used No (0 pt) Altered Elimination No (0 pt) Score/Fall Risk Level 0 - 2 = Low Risk Oriented to surroundings, Maintained a safe environment, Hourly rounding (assess needs \T\ fall precautionary measures) done. Abuse screen: Denies threats or abuse. Denies injuries from another. Nutritional screening: No deficits noted. Tuberculosis screening: No symptoms or risk factors identified. Assessment: 04:36 Reassessment: see triage assessment. al5 05:18 Reassessment: Patient appears in no apparent distress at this time. No changes from al5 previously documented assessment. Patient and/or family updated on plan of care and expected duration. Pain level reassessed. Patient is alert, oriented x 3, equal unlabored respirations, skin warm/dry/pink. 06:27 Reassessment: Patient appears in no apparent distress at this time. No changes from al5 previously documented assessment. Patient and/or family updated on plan of care and expected duration. Pain level reassessed. Patient is alert, oriented x 3, equal unlabored respirations, skin warm/dry/pink. 07:35 Reassessment: Patient appears in no apparent distress at this time. Patient and/or iw family updated on plan of care and expected duration. Pain level reassessed. Patient is alert, oriented x 3, equal unlabored respirations, skin warm/dry/pink. Vital Signs: 04:30 BP 141 / 71; Pulse 90; Resp 18; Pulse Ox 100% on R/A; al5 04:36 BP 141 / 71; Pulse 91; Resp 16; Temp 97.5; Pulse Ox 100% on R/A; Weight 70.31 kg; al5 Height 5 ft. 0 in. ; Pain 0/10; 05:00 BP 120 / 56; Pulse 87; Resp 16; Pulse Ox 100% on R/A; al5 06:00 BP 110 / 55; Pulse 84; Resp 18; Pulse Ox 100% on R/A; al5 07:35 BP 126 / 70; Pulse 98; Resp 16; Pulse Ox 97% on R/A; Pain 0/10; iw 04:36 Body Mass Index 30.27 (70.31 kg, 152.4 cm) al5 04:36 Pain Scale: Adult al5 07:35 Pain Scale: Adult iw Latasha Coma Score: 05:09 Eye Response: spontaneous(4). Motor Response: obeys commands(6). Verbal Response: sp4 oriented(5). Total: 15. ED Course: 04:35 Patient arrived in ED. [email or web address] 04:36 Arm band placed on right wrist. Patient placed in the treatment room, on a stretcher, al5 on pulse oximetry. 04:36 Patient has correct armband on for positive identification. Allergy band placed. Bed in al5 low position. Call light in reach. Side rails up X2. Provided Education on: plan of care. 04:36 No provider procedures requiring assistance completed. Maintain EMS IV. Dressing al5 intact. Good blood return noted. Site clean \T\ dry. Gauge \T\ site: 22G L Hand. 04:42 Walt Car MD is Attending Physician. sp4 04:59 Lisa Yoo RN is Primary Nurse. al5 05:02 Triage completed. al5 05:13 Basic Metabolic Panel Sent. oe 05:13 EKG done, by ED staff, reviewed by Walt Car MD. oe 05:25 Warm blanket given. Diet tray given. al5 07:35 IV discontinued, intact, bleeding controlled, No redness/swelling at site. Pressure iw dressing applied. Administered Medications: 05:25 Drug: D5-NS IV 1000 ml IV at 125 ml/hr continuous Route: IV; Rate: 125 ml/hr; Site: al5 left hand; 07:37 Follow up: IV Status: Order to discontinue infusion iw Medication: 04:36 VIS not applicable for this client. al5 Point of Care Testing: Blood Glucose: 07:15 Blood Glucose: 186 mg/dL; iw Ranges: Outcome: 07:20 Discharge ordered by . sp4 07:35 Discharged to home iw 07:37 Condition: good iw 07:37 Discharge instructions given to patient, Instructed on discharge instructions, follow up and referral plans. Demonstrated understanding of instructions, follow-up care, 07:37 Patient left the ED. iw Signatures: Suyapa Cha, RN RN iw Chao Medina Mellisa Ramos6 Walt Car MD MD sp4 Lisa Yoo RN RN al5 Corrections: (The following items were deleted from the chart) 05:05 04:36 Chief complaint: EMS states: patient was laying in bed sleeping, fell off of the al5 pale and was cool and clammy. ems toned out, bgl was 24. d10 and oral glucose given, patient bgl came up to 220. al5
--- NOTE | 2024-09-18 07:21 | EDPHYS ---
Physician Documentation [facility] Name: Milana Gibson Age: 63 yrs Sex: Female : 1960 Arrival Date: 09/18/2024 Time: 04:33 Bed 4 Private MD: ED Physician Walt Car HPI: 09/18 04:43 This 63 yrs old Female presents to ER via Unassigned with complaints of Low sp4 Blood Sugar. 20:29 Patient presents with EMS from home where sugar reported to be at 26 at home . Was sp4 delirious and unresponsive then her relatives called EMS. States she injected her regular insulin Novolin R and Lantus before bedtime but did not properly eat. EMS administered D10 IV and also PO Glucose increasing sugar to 220. Historical: - Allergies: 04:36 Clindamycin; al5 04:36 Keflex; al5 04:36 PENICILLINS; al5 04:36 tramadol; al5 - Home Meds: 04:36 paroxetine HCl 10 mg Oral tab 1 tab once daily [Active]; metformin 1 Oral tab 1 tab 2 al5 times per day [Active]; fluconazole 200 mg Oral tab 1 tab once daily [Active]; aspirin 81 mg Oral TbEC 1 tab once daily [Active]; - PMHx: 04:36 Depression; Diabetes - NIDDM; al5 - PSHx: 04:36 section; Cholecystectomy; Tonsillectomy; tubal ligation; al5 - Immunization history:: Adult Immunizations up to date. - Infectious Disease History:: Denies. - Social history:: Smoking status: Patient denies any tobacco usage or history of. - Family history:: not pertinent. ROS: 20:31 Constitutional: Negative for fever, chills, and weight loss, positive for acute sp4 hypoglycemia and episode of unresponsiveness. 20:31 All other systems are negative, Exam: 20:28 Constitutional: This is a well developed, well nourished patient who is awake, alert, sp4 and in no acute distress. Head/Face: Normocephalic, atraumatic. Eyes: Pupils equal round and reactive to light, extra-ocular motions intact. Lids and lashes normal. Conjunctiva and sclera are not injected. Cornea within normal limits. Periorbital areas with no swelling, redness, or edema. ENT: Nares patent. No nasal discharge, no septal abnormalities noted. Tympanic membranes are normal and external auditory canals are clear. Oropharynx with no redness, swelling, or masses, exudates, or evidence of obstruction, uvula midline. Mucous membranes moist. Neck: Trachea midline, no thyromegaly or masses palpated, and no cervical lymphadenopathy. Supple, full range of motion without nuchal rigidity, or vertebral point tenderness. Chest/axilla: Normal chest wall appearance and motion. Nontender with no deformity. No lesions are appreciated. Cardiovascular: Regular rate and rhythm with a normal S1 and S2. No gallops, murmurs, or rubs. Normal PMI, no JVD. No pulse deficits. Respiratory: Lungs have equal breath sounds bilaterally, clear to auscultation and percussion. No rales, rhonchi or wheezes noted. No increased work of breathing, no retractions or nasal flaring. Abdomen/GI: Soft, with normal bowel sounds. No distension or tympany. No guarding or rebound. No evidence of tenderness throughout. Back: No spinal tenderness. No costovertebral tenderness. Skin: Warm, dry with normal turgor. Normal color with no rashes, no lesions, and no evidence of cellulitis. MS/ Extremity: Pulses equal, no cyanosis. Neurovascular intact. Full, normal range of motion. Neuro: Awake and alert, GCS 15, oriented to person, place, time, and situation. Cranial nerves II-XII grossly intact. Motor strength 5/5 in all extremities. Sensory grossly intact. 20:28 ECG was reviewed by the Attending Physician. EG at 0509 normal sinus rhythm at the rate of 87. Vital Signs: 04:30 BP 141 / 71; Pulse 90; Resp 18; Pulse Ox 100% on R/A; al5 04:36 BP 141 / 71; Pulse 91; Resp 16; Temp 97.5; Pulse Ox 100% on R/A; Weight 70.31 kg; al5 Height 5 ft. 0 in. ; Pain 0/10; 05:00 BP 120 / 56; Pulse 87; Resp 16; Pulse Ox 100% on R/A; al5 06:00 BP 110 / 55; Pulse 84; Resp 18; Pulse Ox 100% on R/A; al5 07:35 BP 126 / 70; Pulse 98; Resp 16; Pulse Ox 97% on R/A; Pain 0/10; iw 04:36 Body Mass Index 30.27 (70.31 kg, 152.4 cm) al5 04:36 Pain Scale: Adult al5 07:35 Pain Scale: Adult iw Latasha Coma Score: 05:09 Eye Response: spontaneous(4). Motor Response: obeys commands(6). Verbal Response: sp4 oriented(5). Total: 15. MDM: 04:43 Medical Screening Exam initiated sp4 20:31 Differential diagnosis: diabetes insipidus, DKA, hyperglycemia, hyperthyroidism, sp4 hypothyroidism. Data reviewed: vital signs, nurses notes, EMS record, old medical records, lab test result(s). 20:32 Consideration of Admission/Observation Escalation of care including sp4 admission/observation considered. 20:32 ED course: Last sugar check 186. Patient stable for discharge home. Patient to eat sp4 breakfast on arrival home. . 09/18 04:54 Order name: Basic Metabolic Panel; Complete Time: 07:04 sp4 09/18 04:54 Order name: CBC with Diff; Complete Time: 07:04 sp4 09/18 04:54 Order name: LFT's; Complete Time: 07:04 sp4 09/18 05:09 Order name: Glucose, Ancillary Testing; Complete Time: 07:04 EDMS 09/18 07:25 Order name: Glucose, Ancillary Testing; Complete Time: 20:32 EDMS 09/18 04:54 Order name: EKG - Nurse/Tech; Complete Time: 05:13 sp4 09/18 04:54 Order name: IV Saline Lock; Complete Time: 05:06 sp4 09/18 04:54 Order name: Labs collected and sent; Complete Time: 05:06 sp4 09/18 04:55 Order name: Accucheck Blood Glucose; Complete Time: 04:57 sp4 09/18 07:04 Order name: Accucheck Blood Glucose; Complete Time: 07:15 sp4 EC:09 Rate is 87 beats/min. Rhythm is regular, Normal Sinus Rhythm. QRS [place] is Normal. MI sp4 interval is normal. QRS interval is normal. QT interval is normal. No Q waves. T waves are Normal. No ST changes noted. Clinical impression: Normal ECG. Interpreted by me. Reviewed by me. Administered Medications: 05:25 Drug: D5-NS IV 1000 ml IV at 125 ml/hr continuous Route: IV; Rate: 125 ml/hr; Site: al5 left hand; 07:37 Follow up: IV Status: Order to discontinue infusion iw Point of Care Testing: Blood Glucose: 07:15 Blood Glucose: 186 mg/dL; iw Ranges: Critical Glucose Levels:Adult <50 mg/dl or >400 mg/dl <40 mg/dl or >180 mg/dl Disposition Summary: 09/18/24 07:20 Discharge Ordered Notes: Please eat breakfast at home Location: Home sp4 Problem: new sp4 Symptoms: have improved sp4 Condition: Stable sp4 Diagnosis - Adverse effect of insulin and oral hypoglycemic [antidiabetic] drugs sp4 - Drug-induced hypoglycemia without coma sp4 Followup: sp4 - With: Private Physician - When: 7 - 10 days - Reason: Recheck today's complaints Discharge Instructions: - Discharge Summary Sheet sp4 - Hypoglycemia sp4 Forms: - Patient Portal Instructions sp4 Signatures: Dispatcher [employer] Walt Espinoza MD MD sp4 Lisa Yoo RN RN al5 Suyapa Cha RN iw Corrections: (The following items were deleted from the chart) 20:31 20:29 Patient presents with EMS from home where sugar reported to be at 26 at home . sp4 Was delirious and unresponsive then her relatives called EMS. States she injected her regular insulin Novolin R and Lantus before bedtime but did not properly eat. EMS administered D10 IV and also close. . sp4
[2024-09-18 07:53] VITALS: TEMP 97.5
[2024-09-18 07:58] VITALS: BP 126/70; O2SAT 97
--- NOTE | 2024-09-18 14:49 | EKG ---
Test Date: 2024-09-18 Test Time: 05:09:19 Personal Coach: JAVI MEASUREMENT RESULTS: Intervals: Rate: 87 IA: 136 QRSD: 74 QT: 392 QTc: 471 [place]: P: 13 IA: 136 QRS: 1 T: 36 INTERPRETIVE STATEMENTS: Normal sinus rhythm Normal ECG Compared to ECG 08/30/2024 20:08:52 Sinus tachycardia no longer present Electronically Signed On 09-18-24 14:48:27 DICTATING MACHINE MECHANIC by Leander Wu
== END 2024-09-18 07:37 | disposition home or self-care (01) ==
LOC: ER 04:33
DX: E16.0 Drug-induced hypoglycemia without coma (principal); T38.3X5A Adverse effect of insulin and oral hypoglycemic [antidiabetic] drugs, initial encounter; Z79.82 Long term (current) use of aspirin
CPT/HCPCS: 96365; 93005; 85025; 80048; 36415; 82947 ×2; 80076; 99284; 96366; J7042